=== PATIENT | female | born 1975 | race African-American/Black ===

== ENCOUNTER 2016-10-20 22:44 | Emergency (ER) | payer SELFPAY ==
[~2016-10-20] VITALS: Ht 165.1 cm; Wt 73.0 kg
[~2016-10-20 22:44] MED LIST: CYCL10TA2 PO; TRAM50TA PO
[2016-10-20 23:03] VITALS: BP 104/58
[2016-10-20 23:03] LABS: BILIRUBIN,URINE NEGATIVE (NEG); GLUCOSE,URINE NEGATIVE (NEG); NITRITE,URINE POSITIVE (NEG); PROTEIN,URINE 30 mg/dL (NEG-TRACE)
[2016-10-20 23:12] LABS: BACTERIA,URINE MANY /HPF (0-FEW); RBC,URINE TNTC /HPF (0-2); SQUAMOUS EPITHELIAL CELL,UR MOD /LPF; WBC,URINE TNTC /HPF (0-4)
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
[2016-10-20] MEDS ORDERED: KETOROLAC TROMETHAMINE 60 MG/2 ML SYRINGE. IM ONE (23:30)
[2016-10-20 23:49] LABS: CALCIUM 8.7 mg/dL (8.5-10.1); CREATININE 0.6 mg/dL (0.6-1.0); POTASSIUM 3.8 mmol/L (3.5-5.1)
--- NOTE | 2016-10-21 00:02 | RAD ---
PROCEDURE CT abdomen pelvis without contrast HISTORY Bilateral flank pain for [address] days TE[address]QUE Noncontrast helical CT scanning of the abdomen and pelvis was performed. Without GI contrast, the sensitivity to detect GI tract pathology is decreased. Without IV contrast, the sensitivity to detect organ pathology is decreased. FINDINGS The liver is homogeneous in appearance on this noncontrast study and is normal in size. The spleen is homogeneous appearance on this noncontrast study and is normal in size. The pancreas is homogeneous appearance on this noncontrast study and is not enlarged. The gallbladder appears normal and no radiopaque gallstones are seen. No extrahepatic biliary ductal dilatation is seen. No adrenal masses are seen. No renal stones or hydronephrosis or perinephric fluid collections are seen. No hydroureter is seen. No stones are evident within either ureter or within the lumen of the urinary bladder. The urinary bladder wall is smooth. No focal aneurysmal dilatation of the abdominal aorta is seen. No enlarged abdominal or pelvic lymphadenopathy is seen. No free intraperitoneal fluid or free intraperitoneal air is seen. No obstructive bowel pattern or inflammatory changes are seen. The lung bases are clear. No osteolytic process is seen. There is a bulky fibroid uterus measuring 17 centimeters by 11 centimeters by 8 centimeters. The ovaries are not well seen. There is formed stool scattered throughout the colon. IMPRESSION One. Large fibroid uterus. 2. Mild constipation. Electronically signed by: Jonnathan Stern MD (Oct 21, 2016 00:02:09)
[2016-10-21] MEDS ORDERED: HYDR-971 PO (00:24)
[2016-10-21] MEDS ORDERED: ONDA4TAB7 PO (00:24)
[2016-10-21] MEDS ORDERED: SULF1TAB24 PO (00:24)
--- NOTE | 2016-10-21 07:52 | RAD ---
EXAM: Right foot 3 views. HISTORY: Right foot pain. COMPARISON: None. FINDINGS: No fractures are identified. Joint spaces and alignment are maintained. There are moderate plantar and small posterior calcaneal spurs. IMPRESSION: 1. No fracture.
== END 2016-10-21 00:48 | disposition home or self-care (01) ==
LOC: ER 22:44
DX: N12 Tubulo-interstitial nephritis, not specified as acute or chronic (principal); M19.90 Unspecified osteoarthritis, unspecified site; Z88.0 Allergy status to penicillin
CPT/HCPCS: 36415; 73630; 74176; 80048; 81001; 81025; 87086; 96372; 99285; J1885

== ENCOUNTER 2016-10-23 06:43 | Inpatient (IN) | payer SELFPAY ==
[~2016-10-23] VITALS: Ht 165.1 cm; Wt 74.6 kg
[~2016-10-23 06:43] MED LIST changes: +HYDR-971 PO; +ONDA4TAB7 PO; +SULF1TAB24 PO
--- NOTE | 2016-10-23 07:26 | PHYS DOC ---
Past Medical History Past Medical History: Arthritis Past Surgical History: No Surgical History Additional Information: non-smoker Alcohol Use: None Drug Use: None Adult General Chief Complaint Chief Complaint: FLANK PAIN HPI HPI Patient is a 41 year old female who presents with dysuria for 6 days. She complains of urinary frequency with suprapubic pain and bilateral lower back pain as well. She denies fever, hematuria, or vaginal discharge. She was seen here 3 days ago with flank pain and diagnosed with pyelonephritis. She had a negative CT scan. She was prescribed Bactrim, Zofran, and [place]. She states that the Bactrim makes her nauseated and she vomits after each dose, even with the Zofran. She does not have a PCP. Review of Systems Review of Systems Constitutional: Denies fever or chills. [] Eyes: Denies change in visual acuity, redness, or eye pain. [] HENT: Denies ear pain, nasal congestion or sore throat. [] Respiratory: Denies cough or shortness of breath. [] Cardiovascular: Denies chest pain, palpitations or edema. [] GI: Denies bloody stools or diarrhea. Reports suprapubic pain, nausea, and vomiting. : Denies hematuria or vaginal discharge. Reports dysuria and urinary frequency. Musculoskeletal: Denies joint pain. Reports bilateral low back pain. Integument: Denies rash or skin lesions. [] Neurologic: Denies headache, focal weakness or sensory changes. [] Endocrine: Denies polyuria or polydipsia. [] Psych: Denies anxiety or depression. [] All systems reviewed and negative unless otherwise stated in the HPI. Current Medications Current Medications Current Medications Medications (Trade) Dose Ordered Sig/[facility] Start Time Stop Time Status Last Admin Dose Admin Ondansetron HCl (Zofran) 4 mg 1X ONCE 10/23/16 08:00 10/23/16 08:01 DC 10/23/16 08:09 4 MG Phenazopyridine HCl (Pyridium) 200 mg 1X ONCE 10/23/16 08:00 10/23/16 08:01 DC 10/23/16 08:09 200 MG Sodium Chloride (Iv Sodium Chloride 0.9% 1000ml Bag) 1,000 ml @ 1,000 mls/hr Q1H 10/23/16 08:00 10/23/16 08:59 DC 10/23/16 08:08 1,000 MLS/HR Allergies Allergies Allergies Coded Allergies Type Severity Reaction Last Updated Verified Penicillins Allergy Severe throat closes, hives 09/29/15 No Physical Exam Physical Exam Constitutional: Well developed, well nourished, no acute distress, non-toxic appearance. [] HENT: Normocephalic, atraumatic, oropharynx moist. [] Eyes: PERRLA, EOMI, conjunctiva normal, no discharge. [] Neck: Normal range of motion, no tenderness, supple, no stridor. [] Cardiovascular: Heart rate regular rhythm, no murmur. [] Lungs & Thorax: Bilateral breath sounds clear to auscultation without wheezes, rales, or rhonchi. [] Abdomen: Bowel sounds normal, soft, suprapubic tenderness, no masses, no pulsatile masses. [] Rectal: No tenderness with exam. No gross blood. Skin: Warm, dry, no erythema, no rash. [] Back: No midline tenderness, no CVA tenderness. Bilateral lumbar paraspinal muscle tenderness. Extremities: No tenderness, ROM intact, no edema. Distal pulses equal bilaterally. [] Neurologic: Alert and oriented X 3, normal motor function, normal sensory function, no focal deficits noted. [] Psychologic: Affect normal, judgement normal, mood normal. [] Current Patient Data Vital Signs Vital Signs Date Time Temp Pulse Resp B/P Pulse Ox O2 Delivery O2 Flow Rate FiO2 10/23/16 06:52 99.2 99 16 116/55 100 Room Air 99.2 Lab Values Laboratory Tests Test 10/23/16 07:30 10/23/16 07:50 Urine Collection Type Unknown Urine Color Yellow Urine Clarity Clear Urine pH 6.0 Urine Specific [place] 1.025 Urine Protein 100mg/dL (NEG-TRACE) Urine Glucose (UA) Negativemg/dL (NEG) Urine Ketones (Stick) Negativemg/dL (NEG) Urine Blood Large (NEG) Urine Nitrite Negative (NEG) Urine Bilirubin Negative (NEG) Urine Urobilinogen Dipstick 0.2mg/dL (0.2 mg/dL) Urine Leukocyte Esterase Moderate (NEG) Urine RBC 6-10/HPF (0-2) Urine WBC 5-10/HPF (0-4) Urine Squamous Epithelial Cells Few/LPF Urine Bacteria 0/HPF (0-FEW) White Blood Count 8.1x10^3/uL (4.0-11.0) Red Blood Count 5.04x10^6/uL (3.50-5.40) Hemoglobin 6.3g/dL (12.0-15.5) *L Hematocrit 24.5% (36.0-47.0) L Mean Corpuscular Volume 49fL (79-100) L Mean Corpuscular Hemoglobin 13pg (25-35) L Mean Corpuscular Hemoglobin Concent 26g/dL (31-37) L Red Cell Distribution Width 22.6% (11.5-14.5) H Platelet Count 320x10^3/uL (140-400) Neutrophils (%) (Auto) 51% (31-73) Lymphocytes (%) (Auto) 39% (24-48) Monocytes (%) (Auto) 8% (0-9) Eosinophils (%) (Auto) 1% (0-3) Basophils (%) (Auto) 1% (0-3) Neutrophils # (Auto) 4.2x10^3uL (1.8-7.7) Lymphocytes # (Auto) 3.2x10^3/uL (1.0-4.8) Monocytes # (Auto) 0.7x10^3/uL (0.0-1.1) Eosinophils # (Auto) 0.1x10^3/uL (0.0-0.7) Basophils # (Auto) 0.1x10^3/uL (0.0-0.2) Platelet Estimate Pending Sodium Level 136mmol/L (136-145) Potassium Level 3.6mmol/L (3.5-5.1) Chloride Level 101mmol/L (98-107) Carbon Dioxide Level 24mmol/L (21-32) Anion Gap 11 (6-14) Blood Urea Nitrogen 18mg/dL (7-20) Creatinine 0.6mg/dL (0.6-1.0) Estimated GFR (Cockcroft-Gault) 132.0 BUN/Creatinine Ratio 30 (6-20) H Glucose Level 103mg/dL (70-99) H Calcium Level 8.7mg/dL (8.5-10.1) Total Bilirubin 0.8mg/dL (0.2-1.0) Aspartate Amino Transferase (AST) 11U/L (15-37) L Alanine Aminotransferase (ALT) 13U/L (14-59) L Alkaline Phosphatase 63U/L (46-116) Total Protein 8.6g/dL (6.4-8.2) H Albumin 3.9g/dL (3.4-5.0) Albumin/Globulin Ratio 0.8 (1.0-1.7) L Laboratory Tests 10/23/16 07:50 Laboratory Tests 10/23/16 07:50 EKG EKG [] Radiology/Procedures Radiology/Procedures [] Course & Med Decision Making Course & Med Decision Making Pertinent Labs and Imaging studies reviewed. (See chart for details) The patient presents with continued urinary symptoms after antibiotic treatment for recently diagnosed UTI. On exam, her abdomen is soft and nonsurgical with suprapubic tenderness. Laboratory evaluation reveals significant anemia with Hgb of 6.2. Review of previous labs shows history of anemia, but never this severe. The patient admits to dyspnea on light exertion. She has heavy menstrual cycles but denies hematochezia or melena. She is admitted as observation to the hospitalist service by Dr. Hinojosa for blood transfusion and continued treatment of her UTI. She remained stable in the emergency department. Dragon Disclaimer Dragon Disclaimer This electronic medical record was generated, in whole or in part, using a voice recognition dictation system. Departure Departure Impression: Primary Impression: Anemia Additional Impression: UTI (urinary tract infection) Disposition: ADMITTED INPATIENT Admitting Physician: Leonela Hinojosa Condition: STABLE Referrals: NO PCP (PCP) Problem Qualifiers Primary Impression: Anemia Anemia type: unspecified type Qualified Code: D64.9 - Anemia, unspecified Additional Impression: UTI (urinary tract infection) Urinary tract infection type: acute cystitis Hematuria presence: without hematuria Qualified Code: N30.00 - Acute cystitis without hematuria DOLORES CRAIG Oct 23, 2016 07:26
[2016-10-23] MEDS ORDERED: ONDANSETRON PF 4 MG/2 ML VIAL. IV ONE (08:00)
[2016-10-23] MEDS ORDERED: IV NORMAL SALINE 1000ML BAG 1,000 ML IV SCH (08:00)
[2016-10-23] MEDS ORDERED: PHENAZOPYRIDINE 200 MG TABLET. PO ONE (08:00)
[2016-10-23 08:07] LABS: BILIRUBIN,URINE NEGATIVE (NEG); GLUCOSE,URINE NEGATIVE (NEG); NITRITE,URINE NEGATIVE (NEG); PROTEIN,URINE 100 mg/dL (NEG-TRACE); UROBILINOGEN,URINE 0.2 mg/dL (0.2 mg/dL)
[2016-10-23 08:12] LABS: BASO # 0.1 x10^3/uL (0.0-0.2); BASO % 1 % (0-3); CALCIUM 8.7 mg/dL (8.5-10.1); CREATININE 0.6 mg/dL (0.6-1.0); EOS % 1 % (0-3); HEMATOCRIT 24.5 % (36.0-47.0); LYMPH # 3.2 x10^3/uL (1.0-4.8); LYMPH % 39 % (24-48); MEAN CORPUSCULAR HEMOGLOBIN 13 pg (25-35); MEAN CORPUSCULAR HGB CONC 26 g/dL (31-37); MEAN CORPUSCULAR VOLUME 49 fL (79-100); MONO % 8 % (0-9); NEUT % 51 % (31-73); PLATELET COUNT 320 x10^3/uL (140-400); POTASSIUM 3.6 mmol/L (3.5-5.1); RED BLOOD COUNT 5.04 x10^6/uL (3.50-5.40); RED CELL DISTRIBUTION WIDTH 22.6 % (11.5-14.5); WHITE BLOOD COUNT 8.1 x10^3/uL (4.0-11.0)
[2016-10-23 08:16] LABS: HEMOGLOBIN 6.3 g/dL (12.0-15.5)
[2016-10-23 08:17] LABS: ALBUMIN 3.9 g/dL (3.4-5.0); ALBUMIN/GLOBULIN RATIO 0.8 (1.0-1.7); TOTAL BILIRUBIN 0.8 mg/dL (0.2-1.0); TOTAL PROTEIN 8.6 g/dL (6.4-8.2)
[2016-10-23 08:28] LABS: BACTERIA,URINE 0 /HPF (0-FEW); SQUAMOUS EPITHELIAL CELL,UR FEW /LPF
--- NOTE | 2016-10-23 09:15 | ACF ---
Admission Forms Criteria ANEMIA Clinical Indications for Inpatient Care (Place 'X' for any and all applicable criteria) Ongoing inpatient care may be needed for anemia with 1 or more of the following (1)(2)(3)(4)(18)(37): [X]I. Severe signs or symptoms unresponsive to transfusion or volume replacement, including ANY ONE of the following: []a) Heart failure []b) Chest pain []c) Myocardial ischemia []d) Exertional dyspnea []e) Syncope []f) Acute peripheral ischemia (eg, pulseless, cool, mottled, or cyanotic extremity) [X]g) Other severe signs or symptoms []II. Cognitive impairment []III. Active hemorrhage []IV.Active hemolysis with rapidly progressive anemia []V. Hemodynamic instability Extended stay beyond goal length of stay for the primary condition may be needed until ALL of the following are present (1)(2)(3)(4): []a) Hemodynamic stability []b) Any active blood loss controlled []c) Severe signs or symptoms resolved []d) Mental status normal or at baseline []e) Stable hemoglobin after transfusion []f) Any underlying disorder or complications of treatment controlled The original [employer] content created by [employer] has been revised. The portions of the content which have been revised are identified through the use of italic text or in bold, and [facility] has neither reviewed nor approved the modified material. All other unmodified content is copyright [employer]. Please see references footnoted in the original [facility] edition 2016 Admission Criteria Met?: Yes GEE FRANCES Oct 23, 2016 09:15
[2016-10-23 09:56] LABS: NEG OBC FOB NEG; POS OBC FOB POS
[2016-10-23 11:03] LABS: ANISOCYTOSIS MOD; HYPOCHROMIA MARKED; MICROCYTOSIS MARKED; PLT ESTIMATE ADEQUATE (ADEQUATE); POIKILOCYTOSIS PRESENT
[2016-10-23 11:04] LABS: OVALOCYTES PRESENT; SCHISTOCYTES OCC
[2016-10-23] MEDS ORDERED: ONDANSETRON ODT 4 MG TAB.RAPDIS PO PRN (11:15)
[2016-10-23] MEDS ORDERED: TRAMADOL 50 MG TABLET. PO PRN (11:15)
[2016-10-23] MEDS ORDERED: CYCLOBENZAPRINE 10 MG TABLET. PO PRN (11:15)
[2016-10-23] MEDS ORDERED: HYDROCODONE/APAP 5/325MG TABLET. PO PRN (11:15)
[2016-10-23 12:05] LABS: NEG OBC UR NEG; POS OBC UR POS
[2016-10-23] MEDS: SMZ/TMP 800/160MG TABLET. PO SCH ×2 (12:49→21:00)
[2016-10-23 13:40] VITALS: BP 92/45
[2016-10-23 13:50] VITALS: BP 94/40
--- NOTE | 2016-10-23 13:59 | RAD ---
Pelvic ultrasound, 10/23/2016: History: Menorrhagia Transabdominal scans were obtained. The uterus is enlarged measuring 16.3 x 11.8 x 8.1 cm. It demonstrates heterogeneous internal echogenicity in a multinodular pattern most compatible with a fibroid uterus. The masses are difficult to separate from each other. The largest of these masses measures approximately 7 cm. The central uterine echo complex is not clearly visualized. The uterus has increased in size since the exam of 12/12/2014. Small structures which are probably the ovaries are visualized and they are normal size. No free fluid is evident in the pelvis. IMPRESSION: Enlarged, heterogeneous uterus containing multiple masses compatible with fibroids. The uterus has increased in size since 12/12/2014.
[2016-10-23] MEDS: ACETAMINOPHEN 325 MG TABLET. PO PRN (14:05)
--- NOTE | 2016-10-23 14:05 | HP ---
ADMIT DATE: 10/23/2016 CHIEF COMPLAINT: Flank pain. HISTORY OF PRESENT ILLNESS: The patient is a pleasant 41-year-old -[place] female who has been treated for UTI. She states she has not really tolerated the medicine. She also has some flank pain. While in the ER, we checked her labs, she also has hemoglobin of 6.2. I discussed the case with the ER physician. We are going to admit the patient, give her IV antibiotics and transfuse her and consult Dr. Pollock of the [facility] service. PAST MEDICAL HISTORY: Chronic anemia, heavy periods, arthritis, urinary tract infections. ALLERGIES: PENICILLIN. FAMILY HISTORY: Coronary disease. SOCIAL HISTORY: She works at [employer]. She does not drink, smoke or take drugs. MEDICATIONS: Reviewed, please refer to the MRAD. REVIEW OF SYSTEMS: GENERAL: No history of weight change, weakness or fevers. SKIN: No bruising, hair changes or rashes. EYES: No blurred, double or loss of vision. NOSE AND THROAT: No history of nosebleeds, hoarseness or sore throat. HEART: No history of palpitations, chest pain or shortness of breath on exertion. LUNGS: Denies cough, hemoptysis, wheezing or shortness of breath. GASTROINTESTINAL: The patient complains of some abdominal pain. GENITOURINARY: No history of frequency, urgency, hesitancy or nocturia. NEUROLOGIC: Denies history of numbness, tingling, tremor or weakness. PSYCHIATRIC: No history of panic, anxiety or depression. ENDOCRINE: No history of heat or cold intolerance, polyuria or polydipsia. EXTREMITIES: Denies muscle weakness, joint pain, pain on walking or stiffness. PHYSICAL EXAMINATION: VITAL SIGNS: Temperature afebrile at 99.2, pulse 99, respirations 18, blood pressure ____, O2 sat 100% on room air. GENERAL: She is alert, cooperative. HEART: Normal S1, S2. LUNGS: Clear to auscultation. ABDOMEN: Soft. Decreased bowel sounds, slightly tender. EXTREMITIES: No edema. SKIN: No rashes. PSYCHIATRIC: She is stable. VASCULAR: Good capillary refill. ENDOCRINE: No thyromegaly. LYMPHATICS: No cervical nodes. HEMATOPOIETIC: No bruising. LABORATORY DATA: White count 8, hemoglobin ____, platelets 320. Electrolytes normal. Glucose is 103. Liver function tests basically normal. Albumin 3.9. Urinalysis, large amount of blood, moderate leukocyte esterases, 5-10 white cells. Stool occult blood testing was negative. ASSESSMENT AND PLAN: Acute on chronic anemia secondary to menometrorrhagia and urinary tract infection. We will treat with IV antibiotics. Consult [facility]. Transfuse 2 units packed red blood cells, resume previous home medicines. TWYLA NEUMANN DO DR: ROSALIO/nicanor JOB#: [id number] / [id number]
[2016-10-23 15:00] VITALS: BP 108/43
[2016-10-23 19:15] VITALS: BP 91/44
[2016-10-23 20:19] VITALS: BP 91/44
[2016-10-23] MEDS ORDERED: PHENAZOPYRIDINE 200 MG TABLET. PO PRN (23:00)
[2016-10-23 23:21] VITALS: BP 83/38
[2016-10-24] VITALS (8 sets, daily range): BP systolic 51–110; BP diastolic 38–60
[2016-10-24] MEDS ORDERED: LEVOFLOXACIN 500 MG TABLET PO SCH (06:00)
[2016-10-24 11:31] LABS: HEMATOCRIT 27.7 % (36.0-47.0); HEMOGLOBIN 7.4 g/dL (12.0-15.5)
--- NOTE | 2016-10-24 11:32 | PDOC ---
PROGRESS NOTES Chief Complaint Chief Complaint Dysuria Anemia ASSESSMENT AND PLAN: 1. UTI: E.coli, pt not tolerant of O/P Abx. sensitive to levaquin 2. Anemia of chronic bleed (menorrhagia): [employer] consulted 2. Iron deficiency: 2/2 chronic bleed: check iron studies. plan in IV iron. 4. Hx B12 deficiency: check B12 level. may need repletion. in this setting, MCV of 49 is extremely low. ?inherited anemia as well, e.g. thalassemia. obtain Hbg electrophoresis Vitals Vitals Vital Signs Date Time Temp Pulse Resp B/P Pulse Ox O2 Delivery O2 Flow Rate FiO2 10/24/16 10:52 97.9 72 17 110/53 100 Room Air 97.9 Physical Exam Lungs: Clear Review of Systems Review of Systems feels a bit better. no SOB or dizziness FOREST OROURKE MD Oct 24, 2016 11:32
--- NOTE | 2016-10-24 12:49 | PDOC2 ---
CONSULT Date of Consult Date of Consult DATE: 10/24/16 TIME: 12:43 Reason for Consult Reason for Consult: h/o heavy bleeding Referring Physician Referring Physician: Dr. Hinojosa Identification/Chief Complaint Chief Complaint UTI and abd pain Source Source: Chart review, Patient History of Present Illness Reason for Visit: 41 y/o presented to ED with difficulty swallowing treatment for UTI and abd pain. She also reports heavy menses for > 20years that lasts up to 8 days. Menses is every 30 days. LMP was 10/06/16. She has h/o fibroids. Past Medical History Cardiovascular: No pertinent hx Pulmonary: No pertinent hx GI: No pertinent hx Heme/Onc: No pertinent hx Hepatobiliary: No pertinent hx Psych: No pertinent hx Rheumatologic: No pertinent hx Infectious disease: No pertinent hx Renal/: No pertinent hx Endocrine: No pertinent hx Past Surgical History Past Surgical History: No pertinent history Family History Family History: Cancer Social History ALCOHOL: none Drugs: None Lives: with Family Current Problem List Problem List Problems Medical Problems: (1) Anemia Status: Acute (2) UTI (urinary tract infection) Status: Acute Current Medications Current Medications Current Medications Sodium Chloride (Iv Sodium Chloride 0.9% 1000ml Bag) 1,000 ml @ 1,000 mls/hr Q1H IV Last administered on 10/23/16 08:08; Start 10/23/16 at 08:00; Stop at 08:59; Status DC Phenazopyridine HCl (Pyridium) 200 mg 1X ONCE PO Last administered on 08:09; Start 10/23/16 at 08:00; Stop 10/23/16 at 08:01; Status DC Ondansetron HCl 4 mg 4 mg 1X ONCE IV Last administered on 10/23/16 08:09; Start 10/23/16 at 08:00; Stop 10/23/16 at 08:01; Status DC Levofloxacin/ Dextrose (LEVAQUIN 750mg PREMIX) 150 ml @ 100 mls/hr 1X ONCE IV Last administered on 10/23/16 11:04; Start 10/23/16 at 10:00; Stop 10/23/16 at 11:29; Status DC Cyclobenzaprine HCl (Flexeril) 10 mg PRN QHS PRN PO MUSCLE PAIN; Start at 11:15 Acetaminophen/ Hydrocodone Bitart (Lortab 5/325) 1 tab PRN Q6HRS PRN PO PAIN; Start 10/23/16 at 11:15 Trimethoprim/ Sulfamethoxazole (Bactrim Ds) 1 tab BID PO ; Start 10/23/16 at 12: 00; Stop 10/23/16 at 22:38; Status DC Tramadol HCl (Ultram) 50 mg PRN Q6HRS PRN PO PAIN Last administered on 10:18; Start 10/23/16 at 11:15 Ondansetron HCl (Zofran Odt) 4 mg PRN BID PRN PO NAUSEA/VOMITING; Start at 11:15 Acetaminophen (Tylenol) 325 mg PRN Q6HRS PRN PO MILD PAIN / TEMP Last administered on 10/23/16 14:05; Start 10/23/16 at 13:45 Levofloxacin (Levaquin) 500 mg DAILY06 PO Last administered on 10/24/16 05:24 ; Start 10/24/16 at 06:00 Phenazopyridine HCl (Pyridium) 200 mg PRN Q6HRS PRN PO URINARY PAIN Last administered on 10/24/16 10:10; Start 10/23/16 at 23:00 Active Scripts Active Bactrim Ds Tablet (Sulfamethoxazole/Trimethoprim) 1 Each Tablet 1 Each PO BID Zofran (Ondansetron Hcl) 4 Mg Tablet 4 Mg PO BID PRN [place] 5-325 Tablet (Acetaminophen/Hydrocodone Bitart) 1 Each Tablet 1 Tab PO PRN Q6HRS PRN Cyclobenzaprine Hcl 10 Mg Tablet 1 Tab PO QHS PRN Tramadol Hcl 50 Mg Tablet 50 Mg PO Q6H PRN Allergies Allergies: Coded Allergies: Penicillins (Unverified Allergy, Severe, throat closes, hives, 09/29/15) ROS General: YES: Fatigue, No: Appetite, Chills, Malaise, Night Sweats, Other PSYCHOLOGICAL ROS: No: Anxiety, Behavioral Disorder, Concentration difficultie , Decreased libido, Depression, Disorientation, Hallucinations, Hostility, Irritablity, Memory difficulties, Mood Swings, Obsessive thoughts, Other, Physical abuse, Sexual abuse, Sleep disturbances, Suicidal ideation Eyes: No Blurry vision, No Decreased vision, No Double vision, No Dry eyes, No Excessive tearing, No Eye Pain, No Itchy Eyes, No Loss of vision, No Other, No Photophobia, No Scotomata, No Uses contacts, No Uses glasses HEENT: No: Epistaxis, Heacaches, Hearing change, Nasal congestion, Nasal discharge, Oral lesions, Other, Sinus pain, Sneezing, Snoring, Sore Throat, Tinnitus, Vertigo, Visual Changes, Vocal changes ALLERGY AND IMMUNOLOGY: No: Hives, Insect Bite Sensitivity, Itchy/Watery Eyes, Nasal Congestion, Other, Post Nasal Drip, Seasonal Allergies Hematological and Lymphatic: YES: Bleeding Problems, No: Blood Clots, Blood Transfusions, Brusing, Night Sweats, Other, Pallor, Swollen Lymph Nodes ENDOCRINE: No: Breast Changes, Galactorrhea, Hair Pattern Changes, Hot Flashes , Malaise/lethargy, Mood Swings, Other, Palpitations, Polydipsia/polyuria, Skin Changes, Temperature Intolerance, Unexpected Weight Changes Breast: No New/Changing Breast Lumps, No Nipple changes, No Nipple discharge, No Other Respiratory: No: Cough, Hemoptysis, Orthopnea, Other, Pleuritic Pain, SOB with excertion, Shortness of breath, Sputum Changes, Stridor, Tachypnea, Wheezing Cardiovascular: No Chest Pain, No Edema, No Lt Headedness, No Orthopnea, No Other, No Palpitations, No Paroxysmal Noc. Dyspnea Gastrointestinal: Yes Abdominal Pain, No Constipation, No Diarrhea, No Hematochezia, No Melena, No Nausea, No Other , No Vomiting Genitourinary: No , No , No , No , No , No , No , No Discharge, No Dysuria, No Flank Pain, No Frequency, No Hematuria, No Incontinence, No Other, No Pain, No Retention, No Urgency Neurological: No Behavorial Changes, No Bowel/Bladder ControlChng, No Confusion , No Dizziness, No Gait Disturbance, No Headaches, No Impaired Coord/balance, No Memory Loss, No Numbness/Tingling, No Other, No Seizures, No Speech Problems , No Tremors, No Visual Changes, No Weakness Skin: No Acne, No Dry Skin, No Eczema, No Hair Changes, No Lumps, No Mole Changes, No Mottling, No Nail Changes, No Other, No Pruritus, No Rash, No Skin Lesion Changes Physical Exam General: Alert, Oriented X3, Cooperative HEENT: Atraumatic Lungs: Clear to auscultation Heart: Regular rate Abdomen: Normal bowel sounds, Soft, Other (Enlarged uterus 20 wk size with moderate tenderness. Multiple fibroids palpated.) Extremities: No edema, Normal pulses Neuro: Normal gait, Strength at 5/5 X4 ext Psych/Mental Status: Mental status NL Vitals VITALS Vital Signs Date Time Temp Pulse Resp B/P Pulse Ox O2 Delivery O2 Flow Rate FiO2 10/24/16 10:52 97.9 72 17 110/53 100 Room Air 97.9 Labs Labs Laboratory Tests Test 10/23/16 07:30 10/23/16 07:50 10/23/16 09:30 10/24/16 11:12 Urine Collection Type Unknown Urine Color Yellow Urine Clarity Clear Urine pH 6.0 Urine Specific [place] 1.025 Urine Protein 100mg/dL (NEG-TRACE) Urine Glucose (UA) Negativemg/dL (NEG) Urine Ketones (Stick) Negativemg/dL (NEG) Urine Blood Large (NEG) Urine Nitrite Negative (NEG) Urine Bilirubin Negative (NEG) Urine Urobilinogen Dipstick 0.2mg/dL (0.2 mg/dL) Urine Leukocyte Esterase Moderate (NEG) Urine RBC 6-10/HPF (0-2) Urine WBC 5-10/HPF (0-4) Urine Squamous Epithelial Cells Few/LPF Urine Bacteria 0/HPF (0-FEW) Urine Test Negative (NEG) White Blood Count 8.1x10^3/uL (4.0-11.0) Red Blood Count 5.04x10^6/uL (3.50-5.40) Hemoglobin 6.3g/dL (12.0-15.5) 7.4g/dL (12.0-15.5) Hematocrit 24.5% (36.0-47.0) 27.7% (36.0-47.0) Mean Corpuscular Volume 49fL (79-100) Mean Corpuscular Hemoglobin 13pg (25-35) Mean Corpuscular Hemoglobin Concent 26g/dL (31-37) Red Cell Distribution Width 22.6% (11.5-14.5) Platelet Count 320x10^3/uL (140-400) Neutrophils (%) (Auto) 51% (31-73) Lymphocytes (%) (Auto) 39% (24-48) Monocytes (%) (Auto) 8% (0-9) Eosinophils (%) (Auto) 1% (0-3) Basophils (%) (Auto) 1% (0-3) Neutrophils # (Auto) 4.2x10^3uL (1.8-7.7) Lymphocytes # (Auto) 3.2x10^3/uL (1.0-4.8) Monocytes # (Auto) 0.7x10^3/uL (0.0-1.1) Eosinophils # (Auto) 0.1x10^3/uL (0.0-0.7) Basophils # (Auto) 0.1x10^3/uL (0.0-0.2) Platelet Estimate Adequate (ADEQUATE) Giant Platelets Present Hypochromasia Marked Poikilocytosis Present Anisocytosis Mod Microcytosis Marked Ovalocytes Present Schistocytes Occ Sodium Level 136mmol/L (136-145) Potassium Level 3.6mmol/L (3.5-5.1) Chloride Level 101mmol/L (98-107) Carbon Dioxide Level 24mmol/L (21-32) Anion Gap 11 (6-14) Blood Urea Nitrogen 18mg/dL (7-20) Creatinine 0.6mg/dL (0.6-1.0) Estimated GFR (Cockcroft-Gault) 132.0 BUN/Creatinine Ratio 30 (6-20) Glucose Level 103mg/dL (70-99) Calcium Level 8.7mg/dL (8.5-10.1) Total Bilirubin 0.8mg/dL (0.2-1.0) Aspartate Amino Transf (AST/SGOT) 11U/L (15-37) Alanine Aminotransferase (ALT/SGPT) 13U/L (14-59) Alkaline Phosphatase 63U/L (46-116) Total Protein 8.6g/dL (6.4-8.2) Albumin 3.9g/dL (3.4-5.0) Albumin/Globulin Ratio 0.8 (1.0-1.7) Stool Occult Blood Negative (NEG) Ferritin 3ng/mL (8-252) Laboratory Tests Test 10/24/16 11:12 Hemoglobin 7.4g/dL (12.0-15.5) Hematocrit 27.7% (36.0-47.0) Ferritin 3ng/mL (8-252) Assessment/Plan Assessment/Plan A: UTI Fibroids Menorrhagia Chronic Blood loss anemia P: Agree with plan for transfusion. Pt. with enlarging fibroid uterus. She has family h/o breast cancer. Recommend LAVH & BSO. She will f/u in clinic in next 1-2 weeks for evaluation and scheduling of surgery. Thank you for consult. MEKHI LIM Jr, MD Oct 24, 2016 12:49
[2016-10-24] MEDS ORDERED: IRON SUCROSE COMPLEX 300 MG in IV NORMAL SALINE 250ML 250 ML IV SCH (21:00)
[2016-10-24] MEDS ORDERED: LEVOFLOXACIN 250 MG TABLET. PO SCH (21:00)
[2016-10-25] VITALS (10 sets, daily range): BP systolic 92–140; BP diastolic 48–68
[2016-10-25 05:27] LABS: BASO # 0.1 x10^3/uL (0.0-0.2); BASO % 1 % (0-3); EOS % 2 % (0-3); HEMATOCRIT 25.1 % (36.0-47.0); LYMPH # 2.5 x10^3/uL (1.0-4.8); LYMPH % 38 % (24-48); MEAN CORPUSCULAR HEMOGLOBIN 14 pg (25-35); MEAN CORPUSCULAR HGB CONC 28 g/dL (31-37); MEAN CORPUSCULAR VOLUME 51 fL (79-100); MONO % 13 % (0-9); NEUT % 47 % (31-73); PLATELET COUNT 255 x10^3/uL (140-400); RED BLOOD COUNT 4.94 x10^6/uL (3.50-5.40); RED CELL DISTRIBUTION WIDTH 23.1 % (11.5-14.5); WHITE BLOOD COUNT 6.7 x10^3/uL (4.0-11.0)
[2016-10-25] MEDS ORDERED: LEVOFLOXACIN 250 MG TABLET. PO SCH (06:00)
[2016-10-25] MEDS ORDERED: IRON SUCROSE COMPLEX 300 MG in IV NORMAL SALINE 250ML 250 ML IV SCH (09:00)
[2016-10-25] MEDS ORDERED: FERR-26 PO (09:14)
[2016-10-25 10:27] LABS: % SAT IRON 68 % (15-34); IRON,SERUM 297 ug/dL (50-170)
--- NOTE | 2016-10-25 13:14 | PDOC ---
PROGRESS NOTES Chief Complaint Chief Complaint ANA Acute blood loss anemia sec to menorrhagia Fibroid Uterus UTI, sensitive to levaquin History of Present Illness History of Present Illness hgb 6 plus, getting IV venofer Feels ok Iron studies reviewed, supports ANA NOt having her periods today PLAn: OP gyne ff up for hysterrectomy TRansfuse 1 prbc today LAst IV venofer today, no more to follow PO ferrous sulfate upon dc HH yolanda If stable yolanda then home yolanda dw pt Vitals Vitals Vital Signs Date Time Temp Pulse Resp B/P Pulse Ox O2 Delivery O2 Flow Rate FiO2 10/25/16 10:36 97.9 86 18 111/68 98 Room Air 97.9 Physical Exam General: Alert, Oriented X3, Cooperative Heart: Regular rate Lungs: Clear Abdomen: Normal bowel sounds, Soft, Other (Enlarged uterus 20 wk size with moderate tenderness. Multiple fibroids palpated.) Extremities: No edema, Normal pulses Labs LABS Laboratory Tests Test 10/25/16 04:30 White Blood Count 6.7x10^3/uL (4.0-11.0) Red Blood Count 4.94x10^6/uL (3.50-5.40) Hemoglobin 7.0g/dL (12.0-15.5) Hematocrit 25.1% (36.0-47.0) Mean Corpuscular Volume 51fL (79-100) Mean Corpuscular Hemoglobin 14pg (25-35) Mean Corpuscular Hemoglobin Concent 28g/dL (31-37) Red Cell Distribution Width 23.1% (11.5-14.5) Platelet Count 255x10^3/uL (140-400) Neutrophils (%) (Auto) 47% (31-73) Lymphocytes (%) (Auto) 38% (24-48) Monocytes (%) (Auto) 13% (0-9) Eosinophils (%) (Auto) 2% (0-3) Basophils (%) (Auto) 1% (0-3) Neutrophils # (Auto) 3.1x10^3uL (1.8-7.7) Lymphocytes # (Auto) 2.5x10^3/uL (1.0-4.8) Monocytes # (Auto) 0.9x10^3/uL (0.0-1.1) Eosinophils # (Auto) 0.1x10^3/uL (0.0-0.7) Basophils # (Auto) 0.1x10^3/uL (0.0-0.2) Assessment and Plan Assessmemt and Plan Problems Medical Problems: (1) Anemia Status: Acute (2) Anemia due to unknown mechanism Status: Acute (3) Fibroid, uterine Status: Acute (4) UTI (urinary tract infection) Status: Acute Problems: Comment Review of Relevant I have reviewed the following items pauline (where applicable) has been applied. Labs Laboratory Tests Test 10/24/16 04:30 10/24/16 11:12 10/25/16 04:30 Iron Level 297ug/dL (50-170) Total Iron Binding Capacity 436ug/dL (250-450) Iron Saturation 68% (15-34) Serum Folate 6.48ng/ml (3.2-20.0) Hemoglobin 7.4g/dL (12.0-15.5) 7.0g/dL (12.0-15.5) Hematocrit 27.7% (36.0-47.0) 25.1% (36.0-47.0) Ferritin 3ng/mL (8-252) White Blood Count 6.7x10^3/uL (4.0-11.0) Red Blood Count 4.94x10^6/uL (3.50-5.40) Mean Corpuscular Volume 51fL (79-100) Mean Corpuscular Hemoglobin 14pg (25-35) Mean Corpuscular Hemoglobin Concent 28g/dL (31-37) Red Cell Distribution Width 23.1% (11.5-14.5) Platelet Count 255x10^3/uL (140-400) Neutrophils (%) (Auto) 47% (31-73) Lymphocytes (%) (Auto) 38% (24-48) Monocytes (%) (Auto) 13% (0-9) Eosinophils (%) (Auto) 2% (0-3) Basophils (%) (Auto) 1% (0-3) Neutrophils # (Auto) 3.1x10^3uL (1.8-7.7) Lymphocytes # (Auto) 2.5x10^3/uL (1.0-4.8) Monocytes # (Auto) 0.9x10^3/uL (0.0-1.1) Eosinophils # (Auto) 0.1x10^3/uL (0.0-0.7) Basophils # (Auto) 0.1x10^3/uL (0.0-0.2) Laboratory Tests Test 10/25/16 04:30 White Blood Count 6.7x10^3/uL (4.0-11.0) Red Blood Count 4.94x10^6/uL (3.50-5.40) Hemoglobin 7.0g/dL (12.0-15.5) Hematocrit 25.1% (36.0-47.0) Mean Corpuscular Volume 51fL (79-100) Mean Corpuscular Hemoglobin 14pg (25-35) Mean Corpuscular Hemoglobin Concent 28g/dL (31-37) Red Cell Distribution Width 23.1% (11.5-14.5) Platelet Count 255x10^3/uL (140-400) Neutrophils (%) (Auto) 47% (31-73) Lymphocytes (%) (Auto) 38% (24-48) Monocytes (%) (Auto) 13% (0-9) Eosinophils (%) (Auto) 2% (0-3) Basophils (%) (Auto) 1% (0-3) Neutrophils # (Auto) 3.1x10^3uL (1.8-7.7) Lymphocytes # (Auto) 2.5x10^3/uL (1.0-4.8) Monocytes # (Auto) 0.9x10^3/uL (0.0-1.1) Eosinophils # (Auto) 0.1x10^3/uL (0.0-0.7) Basophils # (Auto) 0.1x10^3/uL (0.0-0.2) Microbiology 10/23/16 Urine Culture - Final, Complete 10/23/16 Urine Culture Result 1 (MILANA) - Final, Complete 10/23/16 Antimicrobic Susceptibility - Final, Complete Medications Current Medications Sodium Chloride (Iv Sodium Chloride 0.9% 1000ml Bag) 1,000 ml @ 1,000 mls/hr Q1H IV Last administered on 10/23/16t 08:08; Start 10/23/16 at 08:00; Stop at 08:59; Status DC Phenazopyridine HCl (Pyridium) 200 mg 1X ONCE PO Last administered on 08:09; Start 10/23/16 at 08:00; Stop 10/23/16 at 08:01; Status DC Ondansetron HCl 4 mg 4 mg 1X ONCE IV Last administered on 10/23/16 08:09; Start 10/23/16 at 08:00; Stop 10/23/16 at 08:01; Status DC Levofloxacin/ Dextrose (LEVAQUIN 750mg PREMIX) 150 ml @ 100 mls/hr 1X ONCE IV Last administered on 10/23/16 11:04; Start 10/23/16 at 10:00; Stop 10/23/16 at 11:29; Status DC Cyclobenzaprine HCl (Flexeril) 10 mg PRN QHS PRN PO MUSCLE PAIN; Start at 11:15 Acetaminophen/ Hydrocodone Bitart (Lortab 5/325) 1 tab PRN Q6HRS PRN PO PAIN; Start 10/23/16 at 11:15 Trimethoprim/ Sulfamethoxazole (Bactrim Ds) 1 tab BID PO ; Start 10/23/16 at 12: 00; Stop 10/23/16 at 22:38; Status DC Tramadol HCl (Ultram) 50 mg PRN Q6HRS PRN PO PAIN Last administered on 10:18; Start 10/23/16 at 11:15 Ondansetron HCl (Zofran Odt) 4 mg PRN BID PRN PO NAUSEA/VOMITING; Start at 11:15 Acetaminophen (Tylenol) 325 mg PRN Q6HRS PRN PO MILD PAIN / TEMP Last administered on 10/23/16 14:05; Start 10/23/16 at 13:45 Levofloxacin (Levaquin) 500 mg DAILY06 PO Last administered on 10/24/16 05:24 ; Start 10/24/16 at 06:00; Stop 10/24/16 at 14:34; Status DC Phenazopyridine HCl (Pyridium) 200 mg PRN Q6HRS PRN PO URINARY PAIN Last administered on 10/24/16 10:10; Start 10/23/16 at 23:00 Levofloxacin 250 mg 250 mg DAILY06 PO ; Start 10/25/16 at 06:00; Stop 10/25/16 at 06:00; Status DC Iron Sucrose/ Sodium Chloride (Venofer/Iv Sodium Chloride 0.9% 250ml) 265 ml @ 78.571 mls/ hr Q12HR IV Last administered on 10/24/16 21:19; Start 10/24/16 at 21:00; Stop 10/25/16 at 00:01; Status DC Levofloxacin 300 mg 300 mg BID66 PO ; Start 10/24/16 at 21:00; Stop 10/24/16 at 21:00; Status DC Levofloxacin/ Dextrose 50 ml @ 50 mls/hr Q24H IV Last administered on 20:19; Start 10/24/16 at 20:00 Iron Sucrose/ Sodium Chloride (Venofer/Iv Sodium Chloride 0.9% 250ml) 265 ml @ 90 mls/hr Q12H IV Last administered on 10/25/16 09:32; Start 10/25/16 at 09:00 ; Stop 10/25/16 at 23:00 Active Scripts Active Bactrim Ds Tablet (Sulfamethoxazole/Trimethoprim) 1 Each Tablet 1 Each PO BID Zofran (Ondansetron Hcl) 4 Mg Tablet 4 Mg PO BID PRN [place] 5-325 Tablet (Acetaminophen/Hydrocodone Bitart) 1 Each Tablet 1 Tab PO PRN Q6HRS PRN Cyclobenzaprine Hcl 10 Mg Tablet 1 Tab PO QHS PRN Tramadol Hcl 50 Mg Tablet 50 Mg PO Q6H PRN Vitals/I & O Vital Sign - Last 24 Hours 10/24/16 10/24/16 10/24/16 10/24/16 15:00 19:10 20:00 23:05 Temp 98.4 98.8 97.7 98.4 98.8 97.7 Pulse 67 77 73 Resp 17 20 18 B/P 96/43 99/49 102/60 Pulse Ox 99 100 O2 Delivery Room Air Room Air Room Air Room Air 10/24/16 10/25/16 10/25/16 10/25/16 23:05 03:25 07:30 10:36 Temp 99.7 98.1 97.9 99.7 98.1 97.9 Pulse 77 72 86 Resp 16 16 18 B/P 107/54 109/55 111/68 Pulse Ox 100 99 99 98 O2 Delivery Room Air Room Air Room Air Room Air Intake and Output 10/24/16 10/24/16 10/25/16 15:00 23:00 07:00 Intake Total 640 ml 300 ml Balance 640 ml 300 ml FERMIN INIGUEZ MD Oct 25, 2016 13:14
[2016-10-25] MEDS: ACETAMINOPHEN 325 MG TABLET. PO PRN (23:12)
[2016-10-26 03:00] VITALS: BP 98/50
[2016-10-26 06:57] LABS: BASO # 0.1 x10^3/uL (0.0-0.2); BASO % 1 % (0-3); EOS % 2 % (0-3); HEMATOCRIT 29.3 % (36.0-47.0); LYMPH # 2.8 x10^3/uL (1.0-4.8); LYMPH % 29 % (24-48); MEAN CORPUSCULAR HEMOGLOBIN 15 pg (25-35); MEAN CORPUSCULAR HGB CONC 27 g/dL (31-37); MEAN CORPUSCULAR VOLUME 56 fL (79-100); MONO % 9 % (0-9); NEUT % 59 % (31-73); PLATELET COUNT 268 x10^3/uL (140-400); RED BLOOD COUNT 5.24 x10^6/uL (3.50-5.40); RED CELL DISTRIBUTION WIDTH 34.1 % (11.5-14.5); WHITE BLOOD COUNT 9.5 x10^3/uL (4.0-11.0)
[2016-10-26 07:00] VITALS: BP 104/61
--- NOTE | 2016-10-26 10:36 | PDOC3 ---
Discharge Summary Visit Information Date of Admission: Oct 23, 2016 Date of Discharge: Oct 26, 2016 Admitting Diagnosis Comment: ANA Acute blood loss anemia sec to menorrhagia Fibroid Uterus UTI, sensitive to levaquin Final Diagnosis Problems Medical Problems: (1) Anemia Status: Acute (2) Anemia due to unknown mechanism Status: Acute (3) Fibroid, uterine Status: Acute (4) ANA (iron deficiency anemia) Status: Acute (5) UTI (urinary tract infection) Status: Acute Brief Hospital Course Allergies Allergies Coded Allergies Type Severity Reaction Last Updated Verified Penicillins Allergy Severe throat closes, hives 09/29/15 No Vital Signs Vital Signs Date Time Temp Pulse Resp B/P Pulse Ox O2 Delivery O2 Flow Rate FiO2 10/26/16 08:00 Room Air 10/26/16 07:00 98.0 70 18 104/61 98 98.0 Lab Results Laboratory Tests Test 10/24/16 11:12 10/25/16 04:30 10/26/16 05:55 Hemoglobin 7.4g/dL (12.0-15.5) 7.0g/dL (12.0-15.5) 8.0g/dL (12.0-15.5) Hematocrit 27.7% (36.0-47.0) 25.1% (36.0-47.0) 29.3% (36.0-47.0) Ferritin 3ng/mL (8-252) White Blood Count 6.7x10^3/uL (4.0-11.0) 9.5x10^3/uL (4.0-11.0) Red Blood Count 4.94x10^6/uL (3.50-5.40) 5.24x10^6/uL (3.50-5.40) Mean Corpuscular Volume 51fL (79-100) 56fL (79-100) Mean Corpuscular Hemoglobin 14pg (25-35) 15pg (25-35) Mean Corpuscular Hemoglobin Concent 28g/dL (31-37) 27g/dL (31-37) Red Cell Distribution Width 23.1% (11.5-14.5) 34.1% (11.5-14.5) Platelet Count 255x10^3/uL (140-400) 268x10^3/uL (140-400) Neutrophils (%) (Auto) 47% (31-73) 59% (31-73) Lymphocytes (%) (Auto) 38% (24-48) 29% (24-48) Monocytes (%) (Auto) 13% (0-9) 9% (0-9) Eosinophils (%) (Auto) 2% (0-3) 2% (0-3) Basophils (%) (Auto) 1% (0-3) 1% (0-3) Neutrophils # (Auto) 3.1x10^3uL (1.8-7.7) 5.6x10^3uL (1.8-7.7) Lymphocytes # (Auto) 2.5x10^3/uL (1.0-4.8) 2.8x10^3/uL (1.0-4.8) Monocytes # (Auto) 0.9x10^3/uL (0.0-1.1) 0.8x10^3/uL (0.0-1.1) Eosinophils # (Auto) 0.1x10^3/uL (0.0-0.7) 0.2x10^3/uL (0.0-0.7) Basophils # (Auto) 0.1x10^3/uL (0.0-0.2) 0.1x10^3/uL (0.0-0.2) Laboratory Tests Test 10/26/16 05:55 White Blood Count 9.5x10^3/uL (4.0-11.0) Red Blood Count 5.24x10^6/uL (3.50-5.40) Hemoglobin 8.0g/dL (12.0-15.5) Hematocrit 29.3% (36.0-47.0) Mean Corpuscular Volume 56fL (79-100) Mean Corpuscular Hemoglobin 15pg (25-35) Mean Corpuscular Hemoglobin Concent 27g/dL (31-37) Red Cell Distribution Width 34.1% (11.5-14.5) Platelet Count 268x10^3/uL (140-400) Neutrophils (%) (Auto) 59% (31-73) Lymphocytes (%) (Auto) 29% (24-48) Monocytes (%) (Auto) 9% (0-9) Eosinophils (%) (Auto) 2% (0-3) Basophils (%) (Auto) 1% (0-3) Neutrophils # (Auto) 5.6x10^3uL (1.8-7.7) Lymphocytes # (Auto) 2.8x10^3/uL (1.0-4.8) Monocytes # (Auto) 0.8x10^3/uL (0.0-1.1) Eosinophils # (Auto) 0.2x10^3/uL (0.0-0.7) Basophils # (Auto) 0.1x10^3/uL (0.0-0.2) Brief Hospital Course Ms. Hernandez is a 41 old AA male admitted for hGb 6, got BT, has menorrahgia, US shows fibroid uterus. Advised sx by OB gyne, Will ff up as OP to set up schedule. Got IV venofer here multiple doses (by colleague),. Being dcd on PO ferrous sulfate and dc instructions ff up gyne Incidental UTI,sensitive to levaquin Discharge Information Condition at Discharge: Improved, Stable Follow Up: Weeks (dr lesli fernández) Disposition/Orders: D/C to Home Scheduled Sulfamethoxazole/Trimethoprim (Bactrim Ds Tablet) 1 EACH PO BID Scheduled PRN Cyclobenzaprine Hcl (Cyclobenzaprine Hcl) 1 TAB PO QHS PRN PRN MUSCLE PAIN Hydrocodone/[place] 5-325 ([place] 5-325 Tablet) 1 TAB PO PRN Q6HRS PRN PRN PAIN Ondansetron Hcl (Zofran) 4 MG PO BID PRN PRN NAUSEA/VOMITING Tramadol Hcl (Tramadol Hcl) 50 MG PO Q6H PRN PRN PAIN FERMIN INIGUEZ MD Oct 26, 2016 10:36
[2016-10-26 10:54] VITALS: BP 107/58
[2016-10-26 15:26] LABS: HGB A 98.5 % (94.0-98.0); HGB A2 1.5 % (0.7-3.1); HGB ELECROPHORESIS COMMENT Note: (.)
[2016-10-29 07:32] LABS: VIT B12 BINDING 1263 pg/mL (725-2045)
== END 2016-10-26 13:30 | disposition home or self-care (01) | DRG 760 ==
LOC: ER 06:43 → 6 SOUTH 08:40
PROVIDERS: ADMIT Internal Medicine; ATTEND Internal Medicine
PROC: 30233N1 Transfusion of Nonautologous Red Blood Cells into Peripheral Vein, Percutaneous Approach (ICD-10-PCS; principal; 2016-10-23)
DX: N92.0 Excessive and frequent menstruation with regular cycle (principal); N39.0 Urinary tract infection, site not specified; D62 Acute posthemorrhagic anemia; D25.9 Leiomyoma of uterus, unspecified; B96.20 Unspecified Escherichia coli [E. coli] as the cause of diseases classified elsewhere; N92.1 Excessive and frequent menstruation with irregular cycle; R13.10 Dysphagia, unspecified; E53.8 Deficiency of other specified B group vitamins; M19.90 Unspecified osteoarthritis, unspecified site; M54.5 Low back pain; Z88.0 Allergy status to penicillin; Z80.3 Family history of malignant neoplasm of breast; D50.9 Iron deficiency anemia, unspecified
CPT/HCPCS: 36415; 76856; 80053; 81001; 81025; 82274; 82728; 82746; 83020; 83540; 83550; 85007; 85014; 85018; 85027; 86850; 86900; 86901; 86920; 87086; 87186; 96361; 96374; J1756; J1956; J2405; J7030; J7050; P9016; 99285-25

== ENCOUNTER 2016-10-27 23:47 | Inpatient (IN) | payer SELFPAY ==
[~2016-10-27] VITALS: Ht 165.1 cm; Wt 73.0 kg
[~2016-10-27 23:47] MED LIST changes: +FERR-26 PO
[2016-10-28 00:45] LABS: BASO # 0.1 x10^3/uL (0.0-0.2); BASO % 1 % (0-3); EOS % 1 % (0-3); HEMATOCRIT 33.2 % (36.0-47.0); HEMOGLOBIN 9.2 g/dL (12.0-15.5); LYMPH # 2.4 x10^3/uL (1.0-4.8); LYMPH % 21 % (24-48); MEAN CORPUSCULAR HEMOGLOBIN 16 pg (25-35); MEAN CORPUSCULAR HGB CONC 28 g/dL (31-37); MEAN CORPUSCULAR VOLUME 57 fL (79-100); MONO % 9 % (0-9); NEUT % 68 % (31-73); PLATELET COUNT 330 x10^3/uL (140-400); RED BLOOD COUNT 5.87 x10^6/uL (3.50-5.40); RED CELL DISTRIBUTION WIDTH 36.3 % (11.5-14.5); WHITE BLOOD COUNT 11.7 x10^3/uL (4.0-11.0)
[2016-10-28 00:53] LABS: CALCIUM 8.8 mg/dL (8.5-10.1); CREATININE 0.6 mg/dL (0.6-1.0); POTASSIUM 3.3 mmol/L (3.5-5.1)
[2016-10-28 00:59] LABS: ALBUMIN 3.7 g/dL (3.4-5.0); ALBUMIN/GLOBULIN RATIO 0.8 (1.0-1.7); TOTAL BILIRUBIN 1.4 mg/dL (0.2-1.0); TOTAL PROTEIN 8.4 g/dL (6.4-8.2)
[2016-10-28] MEDS ORDERED: VANCOMYCIN 1.75 GM in IV NORMAL SALINE 500ML BAG 500 ML IV ONE (01:00)
[2016-10-28 01:09] LABS: C-REACTIVE PROTEIN 70.5 mg/L (0-3.3)
[2016-10-28] MEDS: CLINDAMYCIN 600MG PREMIX 50 ML IV SCH ×4 (01:20→22:05)
--- NOTE | 2016-10-28 01:40 | RAD ---
PROCEDURE Right upper extremity venous Doppler HISTORY rue pain redness swelling x2 days following IV

clot seen in cephalic vn approx 8 cm above ac space to approx 2 cm below
remainder of veins are patent
reactive lymph node in neck TECHNIQUE AND FINDINGS Duplex ultrasound was used to evaluate the veins of the right upper extremity. Real-time imaging with compression, color flow imaging and spectral Doppler with augmentation were utilized for the study. The jugular vein is compressible and has flow with color imaging. Subclavian vein has flow with color imaging and normal phasic waveforms. The axillary and brachial veins are compressible and have flow with color imaging. Basilic vein is compressible and has flow with color imaging. A portion of the cephalic vein distally is enlarged with intraluminal thrombus consistent with venous thrombosis. Thrombosis is at the site of the previous IV. There is soft tissue swelling in the superficial soft tissues. The thrombus extends into the cephalic vein of the proximal forearm. COMPARISON None IMPRESSION 1. Venous thrombosis involving the cephalic vein. Electronically signed by: Ahsan Fernandes MD (Oct 28, 2016 01:39:09)
--- NOTE | 2016-10-28 02:26 | PHYS DOC ---
Past Medical History Past Medical History: Arthritis Past Surgical History: No Surgical History Alcohol Use: None Drug Use: None Adult General Chief Complaint Chief Complaint: UPPER EXTREMITY SWELLING HPI HPI Patient is a 41 year old female who presents here today complaining of pain to her right upper extremity. Patient was recently discharged from the hospital on Tuesday after admission for severe anemia requiring blood transfusion. Patient reports that she had an IV placed in her right antecubital fossa which initially hurt significantly and they had to change the IV placement and it was placed again in her right antecubital fossa. Patient reports that she arrived to the ER several days ago was diagnosed with a urinary tract infection. She reports that the urinary traction wasn't improving with the antibiotics were prescribed she return to the hospital to have the antibiotics changed during that visit the patient was noted to have severe anemia and was admitted to the hospital. The severe anemia was presumed to be secondary to iron deficiency likely secondary to metromenorrhagia. Patient was given 2 units of blood as well as IV iron through the IV and was discharged home Tuesday evening. Patient reports that when she was discharged to start have discomfort in her right antecubital region. Patient denies any fevers shakes chills nausea vomiting diarrhea chest pain shortness of breath cough cold or rhinorrhea. Patient denies any history of DVTs in the past. Patient denies any other past medical history. Patient denies any history of diabetes or heart failure. Patient denies any prior surgeries. Patient reports that she does have follow-up scheduled with one of the gynecologists for a evaluation for a hysterectomy. Patient's physical exam is significant for significant warmth or tenderness erythema and induration to her right antecubital fossa extending approximately 6 inches in both directions. There is no fluctuance is appreciated. She has no axillary lymphadenopathy. Patient is neurovascularly intact otherwise. Patient has good capillary refill. Patient had labs drawn which were all unremarkabl except for a significantly elevated C-reactive protein. Patient had a ultrasound of her right upper extremity which was significant for a venous thrombosis in the cephalic vein. This is a 41-year-old female with significant swelling to her right antecubital fossa erythema warmth and tenderness which is very concerning for possible cellulitis versus a deep vein thrombosis in that area. I am more clinically concerned about a cellulitis in this patient. Of greater concern is the patient has been on Levaquin for several days now to treat a urinary tract infection. At this is cellulitis this would be a cellulitis while already being treated with antibiotics. The cellulitis would be likely nosocomial he obtained from a IV catheter possibly. Given the significant risk factors I feel that the patient be best served by being admitted to the hospital. I have started broad- spectrum antibiotics including vancomycin and clindamycin in order to cover for MRSA. Review of Systems Review of Systems Constitutional: Denies fever or chills [] Eyes: Denies change in visual acuity, redness, or eye pain [] HENT: Denies nasal congestion or sore throat [] All other review systems are negative except as documented in the history of present illness portion. Current Medications Current Medications Current Medications Medications (Trade) Dose Ordered Sig/Shahid Start Time Stop Time Status Last Admin Dose Admin Clindamycin Phosphate 50 ml @ 100 mls/hr Q8HRS 10/28/16 01:00 10/28/16 01:20 100 MLS/HR Vancomycin HCl 1 each 1 each PRN DAILY PRN 10/28/16 00:30 Vancomycin HCl/ Sodium Chloride (Iv Sodium Chloride 0.9% 500ml Bag) 500 ml @ 250 mls/hr 1X ONCE 10/28/16 01:00 10/28/16 02:59 Allergies Allergies Allergies Coded Allergies Type Severity Reaction Last Updated Verified Penicillins Allergy Severe throat closes, hives 09/29/15 No Physical Exam Physical Exam Constitutional: Well developed, well nourished, no acute distress, non-toxic appearance. [] HENT: Normocephalic, atraumatic, bilateral external ears normal, oropharynx moist, no oral exudates, nose normal. [] Eyes: PERRLA, EOMI, conjunctiva normal, no discharge. [] Neck: Normal range of motion, no tenderness, supple, no stridor. [] Cardiovascular:Heart rate regular rhythm, no murmur [] Lungs & Thorax: Bilateral breath sounds clear to auscultation [] Abdomen: Bowel sounds normal, soft, no tenderness, no masses, no pulsatile masses. [] Skin: As above. Extremities: As above. Neurologic: Alert and oriented X 3, normal motor function, normal sensory function, no focal deficits noted. [] Psychologic: Affect normal, judgement normal, mood normal. [] Current Patient Data Vital Signs Vital Signs Date Time Temp Pulse Resp B/P Pulse Ox O2 Delivery O2 Flow Rate FiO2 10/28/16 01:30 80 127/78 99 Room Air 10/27/16 23:53 98.3 16 98.3 Lab Values Laboratory Tests Test 10/28/16 00:30 White Blood Count 11.7x10^3/uL (4.0-11.0) H Red Blood Count 5.87x10^6/uL (3.50-5.40) H Hemoglobin 9.2g/dL (12.0-15.5) L Hematocrit 33.2% (36.0-47.0) L Mean Corpuscular Volume 57fL (79-100) L Mean Corpuscular Hemoglobin 16pg (25-35) L Mean Corpuscular Hemoglobin Concent 28g/dL (31-37) L Red Cell Distribution Width 36.3% (11.5-14.5) H Platelet Count 330x10^3/uL (140-400) Neutrophils (%) (Auto) 68% (31-73) Lymphocytes (%) (Auto) 21% (24-48) L Monocytes (%) (Auto) 9% (0-9) Eosinophils (%) (Auto) 1% (0-3) Basophils (%) (Auto) 1% (0-3) Neutrophils # (Auto) 8.0x10^3uL (1.8-7.7) H Lymphocytes # (Auto) 2.4x10^3/uL (1.0-4.8) Monocytes # (Auto) 1.0x10^3/uL (0.0-1.1) Eosinophils # (Auto) 0.2x10^3/uL (0.0-0.7) Basophils # (Auto) 0.1x10^3/uL (0.0-0.2) Erythrocyte Sedimentation Rate 11 (0-25) Sodium Level 141mmol/L (136-145) Potassium Level 3.3mmol/L (3.5-5.1) L Chloride Level 101mmol/L (98-107) Carbon Dioxide Level 26mmol/L (21-32) Anion Gap 14 (6-14) Blood Urea Nitrogen 15mg/dL (7-20) Creatinine 0.6mg/dL (0.6-1.0) Estimated GFR (Cockcroft-Gault) 132.0 BUN/Creatinine Ratio 25 (6-20) H Glucose Level 96mg/dL (70-99) Calcium Level 8.8mg/dL (8.5-10.1) Total Bilirubin 1.4mg/dL (0.2-1.0) H Aspartate Amino Transferase (AST) 15U/L (15-37) Alanine Aminotransferase (ALT) 13U/L (14-59) L Alkaline Phosphatase 69U/L (46-116) C-Reactive Protein, Quantitative 70.5mg/L (0-3.3) H Total Protein 8.4g/dL (6.4-8.2) H Albumin 3.7g/dL (3.4-5.0) Albumin/Globulin Ratio 0.8 (1.0-1.7) L Laboratory Tests 10/28/16 00:30 Laboratory Tests 10/28/16 00:30 EKG EKG [] Radiology/Procedures Radiology/Procedures [] Course & Med Decision Making Course & Med Decision Making Pertinent Labs and Imaging studies reviewed. (See chart for details) [] Dragon Disclaimer Dragon Disclaimer This electronic medical record was generated, in whole or in part, using a voice recognition dictation system. Departure Departure Impression: Primary Impression: Cellulitis Additional Impression: Cephalic vein thrombosis Disposition: 09 ADMITTED INPATIENT Admitting Physician: Monica France Condition: IMPROVED Referrals: NO PCP (PCP) Problem Qualifiers EBONY MALDONADO MD Oct 28, 2016 02:26
[2016-10-28] MEDS ORDERED: MORPHINE SULFATE 2 MG/ML DISP.SYRIN. IV PRN (02:30)
[2016-10-28] MEDS ORDERED: ACETAMINOPHEN 325 MG TABLET. PO PRN (02:30)
[2016-10-28] MEDS ORDERED: ONDANSETRON PF 4 MG/2 ML VIAL. IV PRN ×2 (02:30→09:26)
[2016-10-28 03:35] LABS: HYPOCHROMIA MARKED; MICROCYTOSIS MARKED; PLT ESTIMATE ADEQUATE (ADEQUATE); POIKILOCYTOSIS MOD; POLYCHROMASIA SLIGHT; SPHEROCYTES OCC
[2016-10-28 03:36] LABS: OVALOCYTES OCC; ROULEAUX PRESENT; TARGET CELLS OCC; TEAR DROP CELLS OCC
[2016-10-28] MEDS: VANCOMYCIN PER PHARMACY MC PRN ×2 (03:40→04:00)
--- NOTE | 2016-10-28 04:03 | ACF ---
Admit Criteria Forms Admit Criteria Forms Admit Criteria Forms CELLULITIS Clinical Indications for Admission to Inpatient Care (Place 'X' for any and all applicable criteria): Admission is indicated for ANY ONE of the following(1)(2)(3)(4)(5): [ ]I. Limb-threatening infection [ ]II. High-risk comorbid condition as indicated by ANY ONE of the following: [ ]a) Uncontrolled diabetes (eg, HbA1c greater than 10% (0.1)) [ ]b) Cirrhosis [ ]c) Neutropenia [ ]d) Asplenia [ ]e) Immunosuppression [ ]f) Symptomatic heart failure [ ]III. Failure of outpatient therapy as indicated by ALL of the following: [ ]a) Progression or no improvement after adequate trial (minimum of 48 hours, with longer period for stable lower extremity infection) [ ]b) Adequate antibiotic regimen as indicated by use of ANY ONE of the following: [ ]i) First-generation cephalosporin (e.g., cephalexin) [ ]ii) Antistaphylococcal penicillin (e.g., dicloxacillin) [ ]iii) Penicillin-allergic patient regimen (clindamycin, extended-spectrum fluoroquinolone, or doxycycline) [ ]iv) Resistant organism (eg, methicillin-resistant Staphylococcus aureus) regimen (6) [ ]c) Outpatient intravenous therapy regimen is not appropriate due to ANY ONE of the following. (7)(8)(9)(10): [ ]i) It was tried and was not successful (eg, progression of infection). [ ]ii) It is not available or cannot be arranged in a clinically appropriate time frame (e.g., the next day). [ ]iii) Clinical presentation (eg, acuity of infection, rapidity of progression, confirmed or suspected bacteremia) is judged to require ALL of the following: [ ]1) Immediate initiation of intravenous therapy ( eg, cannot wait for next day) [ ]2) Intensity of patient monitoring and observation (eg, vital sign measurement, checks for infection progression) that cannot be provided at other than inpatient level of care [ ]IV. Mental status changes [ ]V. Bacteremia [ ]. Hemodynamic instability [ ]VII. Suspected necrotizing soft tissue infection (e.g., gas in tissue)(11)( 12) [ ]VIII. Orbital infection (13)(14) [ ]IX. Associated surgical procedure (e.g., abscess drainage, debridement) not amenable to outpatient, emergency department, or observation care [ ]X. Cutaneous gangrene [ ]XI. High fever (temperature greater than 39.5 degrees C (103.1 degrees F) (oral)) not responsive to outpatient, emergency department, or observation care therapy [X]XIII. Inpatient admission required rather than observation care (Also use Cellulitis: Observation Care as appropriate) because of ANY ONE of the following : [ ]a) Periorbital or perineal infection that is severe or worsening [X]b) Severe pain requiring acute inpatient management [ ]c) IV fluid to replace significant ongoing (e.g., for over 24 hours) losses (greater than 3L/m2 per day) [ ]d) Compartment syndrome monitoring (17) [ ]e) Strict or protective (eg, laminar flow) isolation [ ]f) Urgent debridement or skin grafting [ ]g) Bone or joint debridement [ ]h) Immediate inpatient surgery [ ]i) Other condition, treatment or monitoring requiring inpatient admission Extended stay beyond goal length of stay may be needed for (1)(18): [ ]a) Necrotizing soft tissue infection or fasciitis [ ]b) Gram-negative infection [ ]c) Methicillin-resistant Staphylococcal aureus (MRSA) infection [ ]d) Peripheral venous insufficiency with cellulitis [ ]e) Extensive edema [ ]f) Sepsis or continued Hemodynamic instability [ ]g) Continued high fever or mental status change [ ]h) Bacteremia [ ]i) Active serious comorbid conditions ( eg, heart failure, renal insufficiency) The original [facility] content created by [employer] has been revised. The portions of the content which have been revised are identified through the use of italic text or in bold, and [facility] has neither reviewed nor approved the modified material. All other unmodified content is copyright [facility] Please see references footnoted in the original [facility] [employer] edition 2016 HEIDY TAYLOR Oct 28, 2016 04:03
[2016-10-28 04:30] VITALS: BP 140/83
[2016-10-28] MEDS ORDERED: INFLUENZA VAX SCREEN BY RX. MC ONE (05:00)
[2016-10-28 07:00] VITALS: BP 111/67
[2016-10-28] MEDS ORDERED: FLU VACC QUAD 2016-17 (36MOS+)/PF 0.5 ML SYRINGE. VAX IM ONE (09:00)
[2016-10-28] MEDS: FERROUS SULFATE 325 MG TABLET PO SCH (10:25)
[2016-10-28] MEDS: IBUPROFEN 600 MG TABLET. PO SCH ×3 (10:25→22:05)
--- NOTE | 2016-10-28 10:35 | PDOC1 ---
History and Physical Date of Admission Date of Admission DATE: 10/28/16 TIME: 10:29 Identification/Chief Complaint Chief Complaint R arm pain and swelling prev site of IV Source Source: Chart review, Patient History of Present Illness History of Present Illness 41 y/o AA female who was just here few days ago for ANA from severe menorrhagia from fibroid uterus and an incidental UTI., She went home, but had pain and swellling and redness of her R antecubital area - site of her iV line, NO fevers Went to ER, no white ct but US shows cephalic vein clot, Pt then admitted and ordered IV CLinda and vanc BUt through the night. had some skin hypersensitivity reaction to the vancomycin NO anaphylaixs though Past Medical History Cardiovascular: No pertinent hx Pulmonary: No pertinent hx GI: No pertinent hx Heme/Onc: No pertinent hx Hepatobiliary: No pertinent hx Psych: No pertinent hx Rheumatologic: No pertinent hx Infectious disease: No pertinent hx Renal/: No pertinent hx, Other (menorrahgaia) Endocrine: No pertinent hx Past Surgical History Past Surgical History: No pertinent history Family History Family History: Cancer Social History Smoke: No ALCOHOL: none Drugs: None Current Problem List Problem List Problems Medical Problems: (1) Cellulitis Status: Acute (2) Cephalic vein thrombosis Status: Acute Problems: Current Medications Current Medications Current Medications Vancomycin HCl 1 each 1 each PRN DAILY PRN MC SEE COMMENTS Last administered on 10/28/16 04:00; Start 10/28/16 at 00:30; Stop 10/28/16 at 05:13; Status DC Clindamycin Phosphate 50 ml @ 100 mls/hr Q8HRS IV Last administered on 06:10; Start 10/28/16 at 01:00 Vancomycin HCl/ Sodium Chloride (Iv Sodium Chloride 0.9% 500ml Bag) 500 ml @ 250 mls/hr 1X ONCE IV Last administered on 10/28/16 02:32; Start 10/28/16 at 01 :00; Stop 10/28/16 at 02:59; Status DC Ondansetron HCl (Zofran) 4 mg PRN Q8HRS PRN IV NAUSEA/VOMITING; Start 10/28/16 at 02:30; Stop 10/28/16 at 09:28; Status DC Morphine Sulfate 2 mg PRN Q2HR PRN IV SEVERE PAIN; Start 10/28/16 at 02:30; Stop 10/29/16 at 02:29 Acetaminophen 650 mg 650 mg PRN Q4HRS PRN PO FEVER; Start 10/28/16 at 02:30; Stop 10/29/16 at 02:29 Vancomycin HCl/ Sodium Chloride (Iv Sodium Chloride 0.9% 250ml) 250 ml @ 250 mls/hr Q8HRS IV ; Start 10/28/16 at 14:00; Stop 10/28/16 at 14:00; Status DC Vancomycin HCl 1 each 1X ONCE MC ; Start 10/29/16 at 05:30; Stop 10/29/16 at 05: 30; Status DC Info (Do NOT chart on this placeholder) 0.05 each 1X ONCE MC ; Start 10/28/16 at 05:00; Stop 10/28/16 at 05:01; Status UNV Influenza Virus Vaccine Quadrival (Fluarix Quad [id number] Syringe) 0.5 ml ONCE ONCE VAX IM Last administered on 10/28/16 09:04; Start 10/28/16 at 09:00; Stop 10/28/16 at 09:01; Status DC Ondansetron HCl (Zofran) 4 mg PRN Q6HRS PRN IV NAUSEA/VOMITING; Start 10/28/16 at 09:26 Ibuprofen (Motrin) 600 mg TID PO Last administered on 10/28/16 10:25; Start 10/28/16 at 09:45 Ferrous Sulfate (Feosol) 325 mg DAILYWBKFT PO Last administered on 10/28/16 10: 25; Start 10/28/16 at 09:45 Active Scripts Active Ferrous Sulfate 325 Mg Tablet 1 Tab PO DAILY Bactrim Ds Tablet (Sulfamethoxazole/Trimethoprim) 1 Each Tablet 1 Each PO BID Zofran (Ondansetron Hcl) 4 Mg Tablet 4 Mg PO BID PRN [place] 5-325 Tablet (Acetaminophen/Hydrocodone Bitart) 1 Each Tablet 1 Tab PO PRN Q6HRS PRN Cyclobenzaprine Hcl 10 Mg Tablet 1 Tab PO QHS PRN Tramadol Hcl 50 Mg Tablet 50 Mg PO Q6H PRN Allergies Allergies: Coded Allergies: Penicillins (Unverified Allergy, Severe, throat closes, hives, 09/29/15) ROS General: No: Appetite, Chills, Fatigue, Malaise, Night Sweats, Other PSYCHOLOGICAL ROS: No: Anxiety, Behavioral Disorder, Concentration difficultie , Decreased libido, Depression, Disorientation, Hallucinations, Hostility, Irritablity, Memory difficulties, Mood Swings, Obsessive thoughts, Other, Physical abuse, Sexual abuse, Sleep disturbances, Suicidal ideation Eyes: No Blurry vision, No Decreased vision, No Double vision, No Dry eyes, No Excessive tearing, No Eye Pain, No Itchy Eyes, No Loss of vision, No Other, No Photophobia, No Scotomata, No Uses contacts, No Uses glasses HEENT: No: Epistaxis, Heacaches, Hearing change, Nasal congestion, Nasal discharge, Oral lesions, Other, Sinus pain, Sneezing, Snoring, Sore Throat, Tinnitus, Vertigo, Visual Changes, Vocal changes ALLERGY AND IMMUNOLOGY: No: Hives, Insect Bite Sensitivity, Itchy/Watery Eyes, Nasal Congestion, Other, Post Nasal Drip, Seasonal Allergies Hematological and Lymphatic: No: Bleeding Problems, Blood Clots, Blood Transfusions, Brusing, Night Sweats, Other, Pallor, Swollen Lymph Nodes ENDOCRINE: No: Breast Changes, Galactorrhea, Hair Pattern Changes, Hot Flashes , Malaise/lethargy, Mood Swings, Other, Palpitations, Polydipsia/polyuria, Skin Changes, Temperature Intolerance, Unexpected Weight Changes Breast: No New/Changing Breast Lumps, No Nipple changes, No Nipple discharge, No Other Respiratory: No: Cough, Hemoptysis, Orthopnea, Other, Pleuritic Pain, SOB with excertion, Shortness of breath, Sputum Changes, Stridor, Tachypnea, Wheezing Cardiovascular: No Chest Pain, No Edema, No Lt Headedness, No Orthopnea, No Other, No Palpitations, No Paroxysmal Noc. Dyspnea Gastrointestinal: No Abdominal Pain, No Constipation, No Diarrhea, No Hematochezia, No Melena, No Nausea, No Other, No Vomiting Genitourinary: No , No , No , No , No , No , No , No Discharge, No Dysuria, No Flank Pain, No Frequency, No Hematuria, No Incontinence, No Other, No Pain, No Retention, No Urgency Musculoskeletal: No Gait Disturbance, No Joint Pain, No Joint Stiffness, No Joint Swelling, No Muscle Pain, No Muscular Weakness, No Other, No Pain In:, No Swelling In: Neurological: No Behavorial Changes, No Bowel/Bladder ControlChng, No Confusion , No Dizziness, No Gait Disturbance, No Headaches, No Impaired Coord/balance, No Memory Loss, No Numbness/Tingling, No Other, No Seizures, No Speech Problems , No Tremors, No Visual Changes, No Weakness Skin: Yes Acne (red ness, warmth and swelling R antecubital area, no palpable induration) Physical Exam General: Alert, Oriented X3, Cooperative, No acute distress HEENT: PERRLA, EOMI Lungs: Clear to auscultation, Normal air movement Heart: S1S2, RRR, no thrills, no rubs, no gallops Cardiovascular: S1, S2 Breasts: Normal, Rt breast nml w/o mass, Lt breast nml w/o mass, Nipples normal Abdomen: Normal bowel sounds, Soft, No tenderness, No hepatosplenomegaly, No masses Rectal Exam: not examined PELVIC: Nml ext genitalia Extremities: Other (redness, warmth, swelling and limited rOM of R arm/forearm) Skin: No rashes, No breakdown, No significant lesion Neuro: Normal gait, Normal speech, Strength at 5/5 X4 ext, Normal tone, Sensation intact, Cranial nerves 3-12 NL, Reflexes 2+ Vitals Vitals Vital Signs Date Time Temp Pulse Resp B/P Pulse Ox O2 Delivery O2 Flow Rate FiO2 10/28/16 08:00 Room Air 10/28/16 07:00 98.2 76 18 111/67 99 98.2 Labs Labs Laboratory Tests Test 10/28/16 00:30 White Blood Count 11.7x10^3/uL (4.0-11.0) Red Blood Count 5.87x10^6/uL (3.50-5.40) Hemoglobin 9.2g/dL (12.0-15.5) Hematocrit 33.2% (36.0-47.0) Mean Corpuscular Volume 57fL (79-100) Mean Corpuscular Hemoglobin 16pg (25-35) Mean Corpuscular Hemoglobin Concent 28g/dL (31-37) Red Cell Distribution Width 36.3% (11.5-14.5) Platelet Count 330x10^3/uL (140-400) Neutrophils (%) (Auto) 68% (31-73) Lymphocytes (%) (Auto) 21% (24-48) Monocytes (%) (Auto) 9% (0-9) Eosinophils (%) (Auto) 1% (0-3) Basophils (%) (Auto) 1% (0-3) Neutrophils # (Auto) 8.0x10^3uL (1.8-7.7) Lymphocytes # (Auto) 2.4x10^3/uL (1.0-4.8) Monocytes # (Auto) 1.0x10^3/uL (0.0-1.1) Eosinophils # (Auto) 0.2x10^3/uL (0.0-0.7) Basophils # (Auto) 0.1x10^3/uL (0.0-0.2) Platelet Estimate Adequate (ADEQUATE) Large Platelets Occ Polychromasia Slight Hypochromasia Marked Poikilocytosis Mod Microcytosis Marked Macrocytosis Slight Spherocytes Occ Target Cells Occ Tear Drop Cells Occ Ovalocytes Occ Rouleau Present Erythrocyte Sedimentation Rate 11 (0-25) Sodium Level 141mmol/L (136-145) Potassium Level 3.3mmol/L (3.5-5.1) Chloride Level 101mmol/L (98-107) Carbon Dioxide Level 26mmol/L (21-32) Anion Gap 14 (6-14) Blood Urea Nitrogen 15mg/dL (7-20) Creatinine 0.6mg/dL (0.6-1.0) Estimated GFR (Cockcroft-Gault) 132.0 BUN/Creatinine Ratio 25 (6-20) Glucose Level 96mg/dL (70-99) Calcium Level 8.8mg/dL (8.5-10.1) Total Bilirubin 1.4mg/dL (0.2-1.0) Aspartate Amino Transf (AST/SGOT) 15U/L (15-37) Alanine Aminotransferase (ALT/SGPT) 13U/L (14-59) Alkaline Phosphatase 69U/L (46-116) C-Reactive Protein, Quantitative 70.5mg/L (0-3.3) Total Protein 8.4g/dL (6.4-8.2) Albumin 3.7g/dL (3.4-5.0) Albumin/Globulin Ratio 0.8 (1.0-1.7) Laboratory Tests Test 10/28/16 00:30 White Blood Count 11.7x10^3/uL (4.0-11.0) Red Blood Count 5.87x10^6/uL (3.50-5.40) Hemoglobin 9.2g/dL (12.0-15.5) Hematocrit 33.2% (36.0-47.0) Mean Corpuscular Volume 57fL (79-100) Mean Corpuscular Hemoglobin 16pg (25-35) Mean Corpuscular Hemoglobin Concent 28g/dL (31-37) Red Cell Distribution Width 36.3% (11.5-14.5) Platelet Count 330x10^3/uL (140-400) Neutrophils (%) (Auto) 68% (31-73) Lymphocytes (%) (Auto) 21% (24-48) Monocytes (%) (Auto) 9% (0-9) Eosinophils (%) (Auto) 1% (0-3) Basophils (%) (Auto) 1% (0-3) Neutrophils # (Auto) 8.0x10^3uL (1.8-7.7) Lymphocytes # (Auto) 2.4x10^3/uL (1.0-4.8) Monocytes # (Auto) 1.0x10^3/uL (0.0-1.1) Eosinophils # (Auto) 0.2x10^3/uL (0.0-0.7) Basophils # (Auto) 0.1x10^3/uL (0.0-0.2) Platelet Estimate Adequate (ADEQUATE) Large Platelets Occ Polychromasia Slight Hypochromasia Marked Poikilocytosis Mod Microcytosis Marked Macrocytosis Slight Spherocytes Occ Target Cells Occ Tear Drop Cells Occ Ovalocytes Occ Rouleau Present Erythrocyte Sedimentation Rate 11 (0-25) Sodium Level 141mmol/L (136-145) Potassium Level 3.3mmol/L (3.5-5.1) Chloride Level 101mmol/L (98-107) Carbon Dioxide Level 26mmol/L (21-32) Anion Gap 14 (6-14) Blood Urea Nitrogen 15mg/dL (7-20) Creatinine 0.6mg/dL (0.6-1.0) Estimated GFR (Cockcroft-Gault) 132.0 BUN/Creatinine Ratio 25 (6-20) Glucose Level 96mg/dL (70-99) Calcium Level 8.8mg/dL (8.5-10.1) Total Bilirubin 1.4mg/dL (0.2-1.0) Aspartate Amino Transf (AST/SGOT) 15U/L (15-37) Alanine Aminotransferase (ALT/SGPT) 13U/L (14-59) Alkaline Phosphatase 69U/L (46-116) C-Reactive Protein, Quantitative 70.5mg/L (0-3.3) Total Protein 8.4g/dL (6.4-8.2) Albumin 3.7g/dL (3.4-5.0) Albumin/Globulin Ratio 0.8 (1.0-1.7) VTE Prophylaxis Ordered VTE Prophylaxis Devices: Contraindicated VTE Pharmacological Prophylaxi: Contraindicated Assessment/Plan Assessment/Plan 1. CLot on superficial cephalic vein sec to IV site - THis is not a DVT as the cephalic vein is a superficial vein,. - tx is compress, NSAIDS - dw her - no real signs of infection but she claims it was bad last night and seems to be getting better with IV clinda 2. ANA sec to fibroid uterus s./p BT and IV venofer last admit - hgb 9 today, cont PO ferrous sulfate 3. Advserse rxn to vanc 4. Recent UTI - cont PO cipro If better yolanda, home FERMIN Hale MD Oct 28, 2016 10:35
[2016-10-28 10:53] VITALS: BP 119/77
[2016-10-28] MEDS ORDERED: VANCOMYCIN 1 GM in IV NORMAL SALINE 250ML 250 ML IV SCH (14:00)
[2016-10-28 14:47] VITALS: BP 101/60
[2016-10-28 19:00] VITALS: BP 108/60
[2016-10-28 23:00] VITALS: BP 90/49
[2016-10-29 03:09] VITALS: BP 89/38
[2016-10-29] MEDS: CLINDAMYCIN 600MG PREMIX 50 ML IV SCH (06:18)
[2016-10-29 07:00] VITALS: BP 101/52
[2016-10-29] MEDS: FERROUS SULFATE 325 MG TABLET PO SCH (08:44)
[2016-10-29] MEDS: IBUPROFEN 600 MG TABLET. PO SCH (08:44)
[2016-10-29 10:12] LABS: BASO % 1 % (0-3); EOS % 6 % (0-3); HEMATOCRIT 28.8 % (36.0-47.0); HEMOGLOBIN 8.2 g/dL (12.0-15.5); LYMPH # 1.3 x10^3/uL (1.0-4.8); LYMPH % 26 % (24-48); MEAN CORPUSCULAR HEMOGLOBIN 16 pg (25-35); MEAN CORPUSCULAR HGB CONC 29 g/dL (31-37); MEAN CORPUSCULAR VOLUME 57 fL (79-100); MONO % 11 % (0-9); NEUT % 58 % (31-73); PLATELET COUNT 270 x10^3/uL (140-400); RED BLOOD COUNT 5.07 x10^6/uL (3.50-5.40); RED CELL DISTRIBUTION WIDTH 37.2 % (11.5-14.5)
[2016-10-29 10:42] LABS: CALCIUM 8.4 mg/dL (8.5-10.1); CREATININE 0.6 mg/dL (0.6-1.0); POTASSIUM 3.7 mmol/L (3.5-5.1)
[2016-10-29 11:00] VITALS: BP 102/58
[2016-10-29] MEDS ORDERED: CLIN300C86 PO (11:20)
[2016-10-29] MEDS ORDERED: IBUP-1007 PO (11:20)
--- NOTE | 2016-10-29 11:22 | PDOC3 ---
Discharge Summary Visit Information Date of Admission: Oct 28, 2016 Date of Discharge: Oct 29, 2016 Admitting Diagnosis Comment: Assessment/Plan 1. CLot on superficial cephalic vein sec to IV site - THis is not a DVT as the cephalic vein is a superficial vein,. - tx is compress, NSAIDS - dw her - no real signs of infection but she claims it was bad last night and seems to be getting better with IV clinda 2. ANA sec to fibroid uterus s./p BT and IV venofer last admit - hgb 9 today, cont PO ferrous sulfate 3. Advserse rxn to vanc 4. Recent UTI - cont PO cipro If better yolanda, home yolanda Final Diagnosis Problems Medical Problems: (1) Cellulitis Status: Acute (2) Cephalic vein thrombosis Status: Acute Brief Hospital Course Allergies Allergies Coded Allergies Type Severity Reaction Last Updated Verified Penicillins Allergy Severe throat closes, hives 09/29/15 No Vital Signs Vital Signs Date Time Temp Pulse Resp B/P Pulse Ox O2 Delivery O2 Flow Rate FiO2 10/29/16 08:00 Room Air 10/29/16 07:00 97.5 69 18 101/52 99 97.5 Lab Results Laboratory Tests Test 10/28/16 00:30 10/29/16 09:50 White Blood Count 11.7x10^3/uL (4.0-11.0) 5.0x10^3/uL (4.0-11.0) Red Blood Count 5.87x10^6/uL (3.50-5.40) 5.07x10^6/uL (3.50-5.40) Hemoglobin 9.2g/dL (12.0-15.5) 8.2g/dL (12.0-15.5) Hematocrit 33.2% (36.0-47.0) 28.8% (36.0-47.0) Mean Corpuscular Volume 57fL (79-100) 57fL (79-100) Mean Corpuscular Hemoglobin 16pg (25-35) 16pg (25-35) Mean Corpuscular Hemoglobin Concent 28g/dL (31-37) 29g/dL (31-37) Red Cell Distribution Width 36.3% (11.5-14.5) 37.2% (11.5-14.5) Platelet Count 330x10^3/uL (140-400) 270x10^3/uL (140-400) Neutrophils (%) (Auto) 68% (31-73) 58% (31-73) Lymphocytes (%) (Auto) 21% (24-48) 26% (24-48) Monocytes (%) (Auto) 9% (0-9) 11% (0-9) Eosinophils (%) (Auto) 1% (0-3) 6% (0-3) Basophils (%) (Auto) 1% (0-3) 1% (0-3) Neutrophils # (Auto) 8.0x10^3uL (1.8-7.7) 2.9x10^3uL (1.8-7.7) Lymphocytes # (Auto) 2.4x10^3/uL (1.0-4.8) 1.3x10^3/uL (1.0-4.8) Monocytes # (Auto) 1.0x10^3/uL (0.0-1.1) 0.5x10^3/uL (0.0-1.1) Eosinophils # (Auto) 0.2x10^3/uL (0.0-0.7) 0.3x10^3/uL (0.0-0.7) Basophils # (Auto) 0.1x10^3/uL (0.0-0.2) 0.0x10^3/uL (0.0-0.2) Platelet Estimate Adequate (ADEQUATE) Large Platelets Occ Polychromasia Slight Hypochromasia Marked Poikilocytosis Mod Microcytosis Marked Macrocytosis Slight Spherocytes Occ Target Cells Occ Tear Drop Cells Occ Ovalocytes Occ Rouleau Present Erythrocyte Sedimentation Rate 11 (0-25) 17 (0-25) Sodium Level 141mmol/L (136-145) 144mmol/L (136-145) Potassium Level 3.3mmol/L (3.5-5.1) 3.7mmol/L (3.5-5.1) Chloride Level 101mmol/L (98-107) 107mmol/L (98-107) Carbon Dioxide Level 26mmol/L (21-32) 30mmol/L (21-32) Anion Gap 14 (6-14) 7 (6-14) Blood Urea Nitrogen 15mg/dL (7-20) 16mg/dL (7-20) Creatinine 0.6mg/dL (0.6-1.0) 0.6mg/dL (0.6-1.0) Estimated GFR (Cockcroft-Gault) 132.0 132.0 BUN/Creatinine Ratio 25 (6-20) Glucose Level 96mg/dL (70-99) 95mg/dL (70-99) Calcium Level 8.8mg/dL (8.5-10.1) 8.4mg/dL (8.5-10.1) Total Bilirubin 1.4mg/dL (0.2-1.0) Aspartate Amino Transf (AST/SGOT) 15U/L (15-37) Alanine Aminotransferase (ALT/SGPT) 13U/L (14-59) Alkaline Phosphatase 69U/L (46-116) C-Reactive Protein, Quantitative 70.5mg/L (0-3.3) Total Protein 8.4g/dL (6.4-8.2) Albumin 3.7g/dL (3.4-5.0) Albumin/Globulin Ratio 0.8 (1.0-1.7) Laboratory Tests Test 10/29/16 09:50 White Blood Count 5.0x10^3/uL (4.0-11.0) Red Blood Count 5.07x10^6/uL (3.50-5.40) Hemoglobin 8.2g/dL (12.0-15.5) Hematocrit 28.8% (36.0-47.0) Mean Corpuscular Volume 57fL (79-100) Mean Corpuscular Hemoglobin 16pg (25-35) Mean Corpuscular Hemoglobin Concent 29g/dL (31-37) Red Cell Distribution Width 37.2% (11.5-14.5) Platelet Count 270x10^3/uL (140-400) Neutrophils (%) (Auto) 58% (31-73) Lymphocytes (%) (Auto) 26% (24-48) Monocytes (%) (Auto) 11% (0-9) Eosinophils (%) (Auto) 6% (0-3) Basophils (%) (Auto) 1% (0-3) Neutrophils # (Auto) 2.9x10^3uL (1.8-7.7) Lymphocytes # (Auto) 1.3x10^3/uL (1.0-4.8) Monocytes # (Auto) 0.5x10^3/uL (0.0-1.1) Eosinophils # (Auto) 0.3x10^3/uL (0.0-0.7) Basophils # (Auto) 0.0x10^3/uL (0.0-0.2) Erythrocyte Sedimentation Rate 17 (0-25) Sodium Level 144mmol/L (136-145) Potassium Level 3.7mmol/L (3.5-5.1) Chloride Level 107mmol/L (98-107) Carbon Dioxide Level 30mmol/L (21-32) Anion Gap 7 (6-14) Blood Urea Nitrogen 16mg/dL (7-20) Creatinine 0.6mg/dL (0.6-1.0) Estimated GFR (Cockcroft-Gault) 132.0 Glucose Level 95mg/dL (70-99) Calcium Level 8.4mg/dL (8.5-10.1) Brief Hospital Course Ms. Hernandez is a 41 old [sex] who presented with [ ] 41 y/o AA female who was just here few days ago for ANA from severe menorrhagia from fibroid uterus and an incidental UTI., She went home, but had pain and swellling and redness of her R antecubital area - site of her iV line, NO fevers Went to ER, no white ct but US shows cephalic vein clot, Pt then admitted and ordered IV CLinda and vanc BUt through the night. had some skin hypersensitivity reaction to the vancomycin NO anaphylaixs though Discharge Information Condition at Discharge: Improved, Stable Disposition/Orders: D/C to Home Scheduled Ferrous Sulfate (Ferrous Sulfate) 1 TAB PO DAILY Sulfamethoxazole/Trimethoprim (Bactrim Ds Tablet) 1 EACH PO BID Scheduled PRN Cyclobenzaprine Hcl (Cyclobenzaprine Hcl) 1 TAB PO QHS PRN PRN MUSCLE PAIN Hydrocodone/Apap 5-325 (Aubrey 5-325 Tablet) 1 TAB PO PRN Q6HRS PRN PRN PAIN Ondansetron Hcl (Zofran) 4 MG PO BID PRN PRN NAUSEA/VOMITING Tramadol Hcl (Tramadol Hcl) 50 MG PO Q6H PRN PRN PAIN TERMULO,FERMIN Y MD Oct 29, 2016 11:22
== END 2016-10-29 13:15 | disposition home or self-care (01) | DRG 315 ==
LOC: ER 23:47 → 6 SOUTH 10-28 02:13
PROVIDERS: ADMIT Internal Medicine; ATTEND Internal Medicine
DX: T82.868A Thrombosis due to vascular prosthetic devices, implants and grafts, initial encounter (principal); L03.113 Cellulitis of right upper limb; D25.9 Leiomyoma of uterus, unspecified; T36.8X5A Adverse effect of other systemic antibiotics, initial encounter; N92.0 Excessive and frequent menstruation with regular cycle; M19.90 Unspecified osteoarthritis, unspecified site; Z88.0 Allergy status to penicillin; Z87.440 Personal history of urinary (tract) infections; D50.9 Iron deficiency anemia, unspecified
CPT/HCPCS: 36415; 80048; 80053; 85007; 85027; 85651; 86140; 90686; 93971; 96374; J3370; J3490; J7040; 99285-25

== ENCOUNTER 2017-02-20 13:46 | Emergency (ER) | payer SELFPAY ==
[~2017-02-20] VITALS: Ht 165.1 cm; Wt 79.8 kg
[~2017-02-20 13:46] MED LIST changes: +CLIN300C8 PO; +IBUP-1007 PO
[2017-02-20 14:16] VITALS: BP 132/63
[2017-02-20] MEDS ORDERED: SULF1TAB24 PO (15:07)
--- NOTE | 2017-02-20 15:07 | PHYS DOC ---
Past Medical History Past Medical History: Arthritis Past Surgical History: No Surgical History Alcohol Use: None Drug Use: None Adult General Chief Complaint Chief Complaint: FOOT INJURY PAIN HPI HPI Patient is a 42 year old female presents to the emergency department stating that she thought that she had a callus on the left outer part of her foot. She states that she had been picking at it and felt that she has an infection in the area now. She states hearing is red warm tender to touch. She denies any drainage or discharge coming from the site. Patient is unsure when her last tetanus immunization occurred. Review of Systems Review of Systems Constitutional: Denies fever or chills [] Eyes: Denies change in visual acuity, redness, or eye pain [] HENT: Denies nasal congestion or sore throat [] Respiratory: Denies cough or shortness of breath [] Cardiovascular: No additional information not addressed in HPI [] GI: Denies abdominal pain, nausea, vomiting, bloody stools or diarrhea [] : Denies dysuria or hematuria [] Musculoskeletal: Denies back pain... Left lateral part of the foot along the fifth metatarsal area Integument: Denies rash or skin lesions. Left lateral foot with redness warmth tenderness along the distal part of the metatarsal area along the fifth toe Neurologic: Denies headache, focal weakness or sensory changes [] Endocrine: Denies polyuria or polydipsia [] Allergies Allergies Allergies Coded Allergies Type Severity Reaction Last Updated Verified Penicillins Allergy Severe throat closes, hives 09/29/15 No Physical Exam Physical Exam Constitutional: Well developed, well nourished, no acute distress, non-toxic appearance. [] HENT: Normocephalic, atraumatic, bilateral external ears normal, oropharynx moist, no oral exudates, nose normal. [] Eyes: PERRLA, EOMI, conjunctiva normal, no discharge. [] Neck: Normal range of motion, no tenderness, supple, no stridor. [] Cardiovascular:Heart rate regular rhythm Lungs & Thorax: No respiratory distress noted Skin: Warm, dry, no erythema, no rash. Patient with a area on the left lateral foot along the fifth metatarsal tarsal area, distal that is red and tender and warm to touch. It appears to be along the side of the callus. No drainage or discharge noted from the site. Peripheral pulses 2+ cap refill brisk less than 2 seconds. Good sensation noted to the toes. Back: No tenderness Extremities: No tenderness, no cyanosis, no clubbing, ROM intact, no edema. [] Neurologic: Alert and oriented X 3, normal motor function, normal sensory function, no focal deficits noted. [] Psychologic: Affect normal, judgement normal, mood normal. [] Current Patient Data Vital Signs Vital Signs Date Time Temp Pulse Resp B/P (MAP) Pulse Ox O2 Delivery O2 Flow Rate FiO2 02/20/17 14:16 98.2 74 20 95 Room Air 98.2 EKG EKG [] Radiology/Procedures Radiology/Procedures [] Course & Med Decision Making Course & Med Decision Making Pertinent Labs and Imaging studies reviewed. (See chart for details) Patient will be placed on Bactrim her tetanus immunization will be updated here the emergency department. She was recommended to do warm Epsom salt soaks 4-5 times a day for 20 minutes at a time. Patient was provided with signs and symptoms to return back to the emergency department. Patient was also instructed to follow-up with her primary care physician in the next 3-5 days. Tylenol or ibuprofen for pain and discomfort. Patient agrees with discharge instructions treatment regimens and follow-up recommendations. [] Dragon Disclaimer Dragon Disclaimer This electronic medical record was generated, in whole or in part, using a voice recognition dictation system. Departure Departure Impression: Primary Impression: Cellulitis of left foot excluding toes Disposition: 01 HOME, SELF-CARE Condition: STABLE Referrals: NO PCP (PCP) Patient Instructions: Cellulitis, [id number] Additional Instructions: Keep the area clean and dry as much as possible. Warm Epsom salt soaks 4-5 times a day for 20 minutes at a time. Medication as prescribed. Tylenol or ibuprofen for pain and discomfort. Follow-up with your primary care physician in the next 3-5 days. Return back to emergency prior signs symptoms of become worse. Scripts Sulfamethoxazole/Trimethoprim (BACTRIM DS TABLET) 1 Each Tablet 1 TAB PO BID, #20 TAB Prov: ELIANA PONCE APRN 02/20/17 ELIANA PONCE APRN Feb 20, 2017 15:07
[2017-02-20] MEDS ORDERED: DIPHTH,PERTUSS(ACELL),TET TOX 0.5 ML DISP.SYRIN. VAX IM ONE (15:15)
== END 2017-02-20 15:24 | disposition home or self-care (01) ==
LOC: ER 13:46
DX: L03.116 Cellulitis of left lower limb (principal); M19.90 Unspecified osteoarthritis, unspecified site; Z88.0 Allergy status to penicillin
CPT/HCPCS: 90471; 90715; 99283-25

== ENCOUNTER 2017-04-06 00:02 | Emergency (ER) | payer SELFPAY ==
[~2017-04-06] VITALS: Ht 165.1 cm; Wt 84.8 kg
[2017-04-06 00:13] VITALS: BP 120/58
[2017-04-06] MEDS ORDERED: CLOB15OI TP (00:24)
--- NOTE | 2017-04-06 00:25 | PHYS DOC ---
Past Medical History Past Medical History: Arthritis Past Surgical History: No Surgical History Alcohol Use: None Drug Use: None Adult General Chief Complaint Chief Complaint: SKIN PROBLEM HPI HPI Patient is a 42 year old female who presents ambulatory from the ED with a complaint of multiple itchy skin lesions. The patient noticed the first skin lesion Tuesday morning on her left forearm, she took a nap, then woke up with several other skin lesions. They are very itchy. He has been scratching them. She has not been exposed to anything that she knows of. [place] in the grass and garden. Review of Systems Review of Systems Constitutional: Denies fever or chills [] Allergies Allergies Allergies Coded Allergies Type Severity Reaction Last Updated Verified Penicillins Allergy Severe throat closes, hives 09/29/15 No vancomycin Allergy Intermediate rash/itching 03/10/17 Yes Physical Exam Physical Exam Constitutional: Well developed, well nourished, no acute distress, non-toxic appearance. Alert, mentating normally. HENT: Normocephalic, atraumatic, bilateral external ears normal, nose normal. [] Eyes: conjunctiva normal, no discharge. [] Neck: Normal range of motion, no stridor. [] Skin: Warm, dry, there are scattered lesions on the arms, 1 or 2 on the back, that are 1 x 2 cm oval raised red lesions with a red more raised dot in the middle. There are no vesicles. The lesions appear consistent with insect bites. Extremities: No tenderness, no cyanosis, no clubbing, ROM intact, no edema. [] Current Patient Data Vital Signs Vital Signs Date Time Temp Pulse Resp B/P (MAP) Pulse Ox O2 Delivery O2 Flow Rate FiO2 04/06/17 00:13 98.0 79 20 99 Room Air 98.0 EKG EKG [] Radiology/Procedures Radiology/Procedures [] Course & Med Decision Making Course & Med Decision Making Pertinent Labs and Imaging studies reviewed. (See chart for details) 42-year-old female with multiple itchy skin lesions, appearance consistent with insect bites. There is no sign of anything more serious than insect bites, no secondary infection. [] Dragon Disclaimer Dragon Disclaimer This electronic medical record was generated, in whole or in part, using a voice recognition dictation system. Departure Departure Impression: Primary Impression: Insect bites Disposition: HOME, SELF-CARE Condition: STABLE Referrals: NO PCP (PCP) Additional Instructions: Apply a dot of ointment that is half the size of a pea to each spot and rubbed in well, after your shower. Do this once a day until better. It will take several days for the swelling and redness to completely go away, but the itching should be improved by the ointment. Scripts Clobetasol Propionate (CLOBETASOL PROPIONATE) 15 Gm Oint...g. 1 BEE TP BID, #15 GM Prov: BIJU NORMAN MD 04/06/17 BIJU NORMAN MD Apr 06, 2017 00:24
== END 2017-04-06 00:30 | disposition home or self-care (01) ==
LOC: ER 00:02
DX: S50.862A Insect bite (nonvenomous) of left forearm, initial encounter (principal); M19.90 Unspecified osteoarthritis, unspecified site; Z88.0 Allergy status to penicillin; Z88.1 Allergy status to other antibiotic agents; W57.XXXA Bitten or stung by nonvenomous insect and other nonvenomous arthropods, initial encounter; Y93.89 Activity, other specified; Y99.8 Other external cause status; Y92.89 Other specified places as the place of occurrence of the external cause
CPT/HCPCS: 99283

== ENCOUNTER 2017-06-15 23:59 | Emergency (ER) | payer SELFPAY ==
[~2017-06-15] VITALS: Ht 165.1 cm; Wt 84.8 kg
[~2017-06-15 23:59] MED LIST changes: +CLOB15OI TP
[2017-06-16 00:37] VITALS: BP 123/60
[2017-06-16] MEDS ORDERED: PRED20TA PO (00:38)
[2017-06-16] MEDS ORDERED: CEPH500T PO (00:38)
--- NOTE | 2017-06-16 00:38 | PHYS DOC ---
Past Medical History Past Medical History: Arthritis Past Surgical History: No Surgical History Alcohol Use: None Drug Use: None Adult General Chief Complaint Chief Complaint: SORE THROAT HPI HPI Patient is a 42 year old female presents to the emergency room stating that she has a sore throat that started yesterday. Patient states that she has had a fever at home. She states that she has had a decreased appetite and feels as though she cannot eat. Patient states that she has able to drink fluids unable to keep them down. Patient states that she is allergic to penicillin. She denies any nausea vomiting, or diarrhea. Review of Systems Review of Systems Constitutional: Denies fever or chills [] Eyes: Denies change in visual acuity, redness, or eye pain [] HENT: Denies nasal congestion complaint of sore throat [] Respiratory: Denies cough or shortness of breath [] Cardiovascular: No additional information not addressed in HPI [] GI: Denies abdominal pain, nausea, vomiting, bloody stools or diarrhea [] : Denies dysuria or hematuria [] Musculoskeletal: Denies back pain or joint pain [] Integument: Denies rash or skin lesions [] Neurologic: Denies headache, focal weakness or sensory changes [] Endocrine: Denies polyuria or polydipsia [] Allergies Allergies Allergies Coded Allergies Type Severity Reaction Last Updated Verified Penicillins Allergy Severe throat closes, hives 09/29/15 No vancomycin Allergy Intermediate rash/itching 03/10/17 Yes Physical Exam Physical Exam Constitutional: Well developed, well nourished, no acute distress, non-toxic appearance. [] HENT: Normocephalic, atraumatic, bilateral external ears normal, oropharynx moist, no oral exudates, nose normal. Bilateral tympanic membranes appear to be normal. Throat with bilateral tonsils erythematous with no exudate noted. No uvula deviation noted. Eyes: PERRLA, EOMI, conjunctiva normal, no discharge. [] Neck: Normal range of motion, no tenderness, supple, no stridor. [] Cardiovascular:Heart rate regular rhythm, no murmur [] Lungs & Thorax: Bilateral breath sounds clear to auscultation [] Skin: Warm, dry, no erythema, no rash. [] Extremities: No tenderness, no cyanosis, no clubbing, ROM intact, no edema. [] Neurologic: Alert and oriented X 3, normal motor function, normal sensory function, no focal deficits noted. [] Psychologic: Affect normal, judgement normal, mood normal. [] EKG EKG [] Radiology/Procedures Radiology/Procedures [] Course & Med Decision Making Course & Med Decision Making Pertinent Labs and Imaging studies reviewed. (See chart for details) Patient's rapid strep was positive. Patient will be placed on Keflex due to her being allergic to penicillin. She'll be provided with prednisone. Recommended plenty of fluids. Also recommended shakes and molds to help keep herself hydrated and provided nutrition. Patient will be discharged home in stable condition signs and symptoms to return back to emergency department as been provided. All questions and concerns been answered at patient's bedside. Patient agrees with discharge instructions treatment regimens and follow-up recommendations. [] Dragon Disclaimer Dragon Disclaimer This electronic medical record was generated, in whole or in part, using a voice recognition dictation system. Departure Departure Impression: Primary Impression: Strep throat Disposition: HOME, SELF-CARE Condition: STABLE Referrals: NO PCP (PCP) Patient Instructions: Strep Throat, [id number] Additional Instructions: Activity as tolerated. Medications as prescribed. Drink plenty of fluids such as water propel or Gatorade, no shakes or months will also be effective for you. Tylenol or ibuprofen for pain and discomfort. Follow-up to primary care physician in the next 5-7 days. Return back to emergency prior signs symptoms of become worse. Scripts Prednisone (PREDNISONE) 20 Mg Tablet 40 MG PO DAILY for 7 Days, #14 TAB Prov: ELIANA PONCE APRN 06/16/17 Cephalexin (CEPHALEXIN) 500 Mg Tablet 1 TAB PO BID, #20 TAB Prov: ELIANA PONCE SUPERVISOR [employer]LE [employer]OTTLE 06/16/17 ELIANA PONCE APRN Jun 16, 2017 00:38
[2017-06-16 08:25] LABS: NEGATIVE OBC STREP NEG; POSITIVE OBC STREP POS
== END 2017-06-16 00:47 | disposition home or self-care (01) ==
LOC: ER 23:59
DX: J02.0 Streptococcal pharyngitis (principal); M19.90 Unspecified osteoarthritis, unspecified site; Z88.0 Allergy status to penicillin; Z88.1 Allergy status to other antibiotic agents
CPT/HCPCS: 87880; 99283

== ENCOUNTER 2017-09-26 18:07 | Emergency (ER) | payer SELFPAY ==
[2017-09-26] MEDS: DEXAMETHASONE SOD PHOS 20 MG/5 ML VIAL. IM ×2 (19:30)
[2017-09-26] MEDS: KETOROLAC 60 MG/2 ML INJ. IM ×2 (19:30)
== END 2017-09-26 19:35 | disposition home or self-care (01) ==
LOC: ER 18:07
DX: M43.6 Torticollis (principal); M19.90 Unspecified osteoarthritis, unspecified site; Z88.0 Allergy status to penicillin; Z88.1 Allergy status to other antibiotic agents
CPT/HCPCS: 96372; 99284; J1100; J1885

== ENCOUNTER 2017-10-04 05:40 | Inpatient (IN) | payer BC ==
[2017-10-04 06:35] LABS: ADD MAN DIFF? NO; BILIRUBIN,URINE NEGATIVE (NEG); CLARITY,URINE CLEAR; COLOR,URINE YELLOW; GLUCOSE,URINE NEGATIVE (NEG); NITRITE,URINE NEGATIVE (NEG); PROTEIN,URINE NEGATIVE (NEG-TRACE); UROBILINOGEN,URINE 0.2 mg/dL (0.2 mg/dL)
[2017-10-04 06:40] LABS: BASO # 0.1 x10^3/uL (0.0-0.2); BASO % 1 % (0-3); EOS # 0.2 x10^3/uL (0.0-0.7); EOS % 4 % (0-3); HEMATOCRIT 25.1 % (36.0-47.0); LYMPH % 40 % (24-48); MEAN CORPUSCULAR HEMOGLOBIN 14 pg (25-35); MEAN CORPUSCULAR HGB CONC 28 g/dL (31-37); MEAN CORPUSCULAR VOLUME 51 fL (79-100); MONO # 0.7 x10^3/uL (0.0-1.1); MONO % 13 % (0-9); NEUT % 41 % (31-73); PLATELET COUNT 357 x10^3/uL (140-400); RED BLOOD COUNT 4.94 x10^6/uL (3.50-5.40); RED CELL DISTRIBUTION WIDTH 20.6 % (11.5-14.5); WHITE BLOOD COUNT 4.9 x10^3/uL (4.0-11.0)
[2017-10-04] MEDS: IV NORMAL SALINE 1000ML BAG 1,000 ML IV (06:41)
[2017-10-04 06:47] LABS: INR 1.1 (0.8-1.1); PARTIAL THROMBOPLASTIN TIME 25 SEC (24-38); PROTHROMBIN TIME PATIENT 13.1 SEC (11.7-14.0)
[2017-10-04 06:56] LABS: ANION GAP 10 (6-14); BLOOD UREA NITROGEN 15 mg/dL (7-20); CALCIUM 9.1 mg/dL (8.5-10.1); CARBON DIOXIDE 27 mmol/L (21-32); CHLORIDE 102 mmol/L (98-107); CREATININE 0.6 mg/dL (0.6-1.0); GFR 131.4; GLUCOSE 92 mg/dL (70-99); POTASSIUM 3.8 mmol/L (3.5-5.1); SODIUM 139 mmol/L (136-145); SQUAMOUS EPITHELIAL CELL,UR MANY /LPF
[2017-10-04 06:57] LABS: BACTERIA,URINE MANY /HPF (0-FEW)
[2017-10-04 06:58] LABS: RBC,URINE OCC /HPF (0-2)
[2017-10-04 07:02] LABS: ALBUMIN 3.6 g/dL (3.4-5.0); ALK PHOS 68 U/L (46-116); ALT (SGPT) 11 U/L (14-59); AST (SGOT) 7 U/L (15-37); DIRECT BILIRUBIN 0.2 mg/dL (0.0-0.2); LIPASE 94 U/L (73-393); TOTAL BILIRUBIN 0.8 mg/dL (0.2-1.0); TOTAL PROTEIN 7.9 g/dL (6.4-8.2)
[2017-10-04 07:16] LABS: CKMB MASS < 0.5 ng/mL (0.0-3.6); CREATINE KINASE 75 U/L (26-192)
[2017-10-04 08:01] LABS: HYPOCHROMIA MARKED; PLT ESTIMATE ADEQUATE (ADEQUATE); POIKILOCYTOSIS PRESENT; POLYCHROMASIA PRESENT
[2017-10-04 08:02] LABS: ANISOCYTOSIS MOD; MICROCYTOSIS MARKED
[2017-10-04 08:03] LABS: OVALOCYTES PRESENT; SCHISTOCYTES FEW; TARGET CELLS FEW; TEAR DROP CELLS FEW
[2017-10-04 08:36] LABS: NEG OBC UR NEG; POS OBC UR POS; U PREG PATIENT NEGATIVE (NEG)
[2017-10-04] MEDS ORDERED: levOFLOXacin PER PHARMACY. MC (08:45)
[2017-10-04] MEDS ORDERED: CONTRAST GIVEN MC (09:00)
[2017-10-04] MEDS ORDERED: ONDANSETRON PF 4 MG/2 ML VIAL. IV (09:30)
[2017-10-04] MEDS: IOHEXOL 300 MG/ML 100ML VIAL. IV (09:55)
[2017-10-04] MEDS: IOHEXOL 240 MG/ML 50ML VIAL. PO (09:55)
[2017-10-04 12:34] LABS: NEGATIVE OBC STREP NEG; POSITIVE OBC STREP POS
[2017-10-04] MEDS ORDERED: HYDROcodone/APAP 5/325MG 1 TAB TABLET PO (13:00)
[2017-10-04] MEDS ORDERED: traMADol 50 MG TABLET PO (13:00)
[2017-10-04] MEDS ORDERED: ONDANSETRON ODT 4 MG TAB.RAPDIS. PO (13:15)
[2017-10-04] MEDS: FLU VACC QS2017-18 (36MOS+)/PF 0.5 ML SYRINGE. VAX IM (15:30)
[2017-10-04] MEDS: CLINDAMYCIN 600MG PREMIX 50 ML IV ×2 (16:13→20:39)
[2017-10-04] MEDS: IV DEXTROSE 5%-LACT RINGERS 1,000 ML IV (16:14)
[2017-10-04] MEDS: LACTOBACILLUS RHAMNOSUS GG 1 CAPSULE. PO (20:38)
[2017-10-04] MEDS ORDERED: SMZ/TMP 800/160MG TABLET. PO (21:00)
[2017-10-04] MEDS ORDERED: NON FORMULARY ITEM (Cephalexin 1 TAB) PO (21:00)
[2017-10-04] MEDS ORDERED: CLOBETASOL EMOLLIENT 0.05% TOPICAL CREAM 15GM TUBE. TP (21:00)
[2017-10-04 22:20] LABS: C DIFF BY PCR Negative (Negative)
[2017-10-05 03:48] LABS: CROSSMATCH AHG 1 2
[2017-10-05] MEDS: IV DEXTROSE 5%-LACT RINGERS 1,000 ML IV ×4 (06:18→23:35)
[2017-10-05] MEDS: CLINDAMYCIN 600MG PREMIX 50 ML IV ×3 (06:18→20:53)
[2017-10-05] MEDS ORDERED: MORPHINE SULFATE 2 MG/ML DISP.SYRIN. IV (07:00)
[2017-10-05] MEDS ORDERED: PROCHLORPERAZINE 10 MG/2 ML VIAL. IV (07:00)
[2017-10-05] MEDS ORDERED: LIDOCAINE 1% PF 2 ML VIAL. ID (07:00)
[2017-10-05] MEDS ORDERED: HYDROmorphone 2 MG/ML VIAL IV (07:00)
[2017-10-05] MEDS ORDERED: fentaNYL PF VIAL 100 MCG/2 ML VIAL IV (07:00)
[2017-10-05] MEDS ORDERED: OXYTOCIN 10 UNIT/ML VIAL. (07:33)
[2017-10-05] MEDS ORDERED: miSOPROStol 200MCG TAB 200 MCG TABLET (07:33)
[2017-10-05 08:36] LABS: ADD MAN DIFF? NO
[2017-10-05 08:40] LABS: BASO % 1 % (0-3); EOS # 0.2 x10^3/uL (0.0-0.7); EOS % 3 % (0-3); HEMATOCRIT 29.6 % (36.0-47.0); LYMPH # 1.9 x10^3/uL (1.0-4.8); LYMPH % 29 % (24-48); MEAN CORPUSCULAR HEMOGLOBIN 18 pg (25-35); MEAN CORPUSCULAR HGB CONC 30 g/dL (31-37); MEAN CORPUSCULAR VOLUME 58 fL (79-100); MONO # 0.7 x10^3/uL (0.0-1.1); MONO % 11 % (0-9); NEUT # 3.6 x10^3uL (1.8-7.7); NEUT % 56 % (31-73); PLATELET COUNT 309 x10^3/uL (140-400); RED BLOOD COUNT 5.09 x10^6/uL (3.50-5.40); RED CELL DISTRIBUTION WIDTH 31.6 % (11.5-14.5); WHITE BLOOD COUNT 6.5 x10^3/uL (4.0-11.0)
[2017-10-05 08:58] LABS: ALBUMIN 3.2 g/dL (3.4-5.0); ALBUMIN/GLOBULIN RATIO 0.8 (1.0-1.7); ALK PHOS 62 U/L (46-116); ALT (SGPT) 10 U/L (14-59); ANION GAP 9 (6-14); AST (SGOT) 8 U/L (15-37); BLOOD UREA NITROGEN 11 mg/dL (7-20); BUN/CREATININE RATIO 22 (6-20); CALCIUM 8.7 mg/dL (8.5-10.1); CARBON DIOXIDE 27 mmol/L (21-32); CHLORIDE 105 mmol/L (98-107); CREATININE 0.5 mg/dL (0.6-1.0); GFR 162.2; GLUCOSE 95 mg/dL (70-99); POTASSIUM 3.8 mmol/L (3.5-5.1); SODIUM 141 mmol/L (136-145); TOTAL BILIRUBIN 1.5 mg/dL (0.2-1.0); TOTAL PROTEIN 7.3 g/dL (6.4-8.2)
[2017-10-05] MEDS ORDERED: FERROUS SULFATE 325 MG TABLET. PO (09:00)
[2017-10-05] MEDS: LACTOBACILLUS RHAMNOSUS GG 1 CAPSULE. PO ×2 (09:00→20:52)
[2017-10-05] MEDS ORDERED: SALIVA STIMULANT AGENT 44ML SPRAY BOTTLE. PO (12:15)
[2017-10-05] MEDS: IV RINGERS,LACTATED 1000ML 1,000 ML IV (12:48)
[2017-10-05] MEDS ORDERED: DEXAMETHASONE SOD PHOS 20 MG/5 ML VIAL. (12:55)
[2017-10-05] MEDS ORDERED: LIDOCAINE 1% PF 5 ML VIAL. (12:55)
[2017-10-05] MEDS ORDERED: MIDAZOLAM HCL/PF 2 MG/2 ML VIAL. (12:55)
[2017-10-05] MEDS ORDERED: LIDOCAINE 2% PF Vial for OR 5 ML VIAL. (12:55)
[2017-10-05] MEDS ORDERED: fentaNYL PF VIAL 100 MCG/2 ML VIAL (12:55)
[2017-10-05] MEDS ORDERED: ONDANSETRON PF 4 MG/2 ML VIAL. (12:55)
[2017-10-05] MEDS ORDERED: PROPOFOL 20 ML IV (12:55)
[2017-10-05] MEDS ORDERED: SEVOFLURANE 16 TO 30 MINUTES. IH (13:45)
[2017-10-05] MEDS: fentaNYL PF VIAL 100 MCG/2 ML VIAL IV ×2 (14:13→14:29)
[2017-10-05] MEDS: ACETAMINOPHEN 325 MG TABLET. PO (18:39)
[2017-10-06] MEDS: CLINDAMYCIN 600MG PREMIX 50 ML IV (05:41)
[2017-10-06] MEDS: PHENOL ORAL SPRAY 177ML BOTTLE. PO ×2 (07:33→13:02)
[2017-10-06] MEDS: ACETAMINOPHEN 325 MG TABLET. PO (07:33)
[2017-10-06] MEDS: IV DEXTROSE 5%-LACT RINGERS 1,000 ML IV (07:33)
[2017-10-06] MEDS: LACTOBACILLUS RHAMNOSUS GG 1 CAPSULE. PO (09:08)
[2017-10-06] MEDS: FLU VACC QS2017-18 (36MOS+)/PF 0.5 ML SYRINGE. VAX IM (12:38)
== END 2017-10-06 13:12 | disposition home or self-care (01) | DRG 745 ==
LOC: ER 05:40 → 5 NORTH 08:30
PROC: 0UDB7ZX Extraction of Endometrium, Via Natural or Artificial Opening, Diagnostic (ICD-10-PCS; principal; 2017-10-05 12:00)
PROC: 30233N1 Transfusion of Nonautologous Red Blood Cells into Peripheral Vein, Percutaneous Approach (ICD-10-PCS; 2017-10-05 13:11)
DX: D25.9 Leiomyoma of uterus, unspecified (principal); D50.9 Iron deficiency anemia, unspecified; N93.8 Other specified abnormal uterine and vaginal bleeding; N83.201 Unspecified ovarian cyst, right side; N84.0 Polyp of corpus uteri; J04.0 Acute laryngitis; J02.9 Acute pharyngitis, unspecified; M19.90 Unspecified osteoarthritis, unspecified site; N92.0 Excessive and frequent menstruation with regular cycle; Z80.9 Family history of malignant neoplasm, unspecified; Z83.49 Family history of other endocrine, nutritional and metabolic diseases; Z88.1 Allergy status to other antibiotic agents; Z88.0 Allergy status to penicillin; Z82.49 Family history of ischemic heart disease and other diseases of the circulatory system; Z90.710 Acquired absence of both cervix and uterus
CPT/HCPCS: 36415; 74177; 80048; 80053; 80076; 81001; 81025; 82553; 83690; 85025; 85610; 85730; 86850; 86870; 86880; 86900; 86901; 86902; 86922; 87070; 87086; 87186; 87324; 87880; 88305; 90686; 96361; 96365; 99285; 99285-25; J1100; J1956; J2250; J2405; J2590; J2704; J3010; J3490; J7030; J7120; P9016; Q9966; Q9967

== ENCOUNTER → 2017-11-16 | Outpatient (CLI) | payer BC ==
[2017-11-16 11:55] LABS: ADD MAN DIFF? NO
[2017-11-16 12:10] LABS: BASO # 0.1 x10^3/uL (0.0-0.2); BASO % 3 % (0-3); EOS # 0.1 x10^3/uL (0.0-0.7); EOS % 3 % (0-3); HEMATOCRIT 28.1 % (36.0-47.0); HEMOGLOBIN 8.1 g/dL (12.0-15.5); LYMPH # 1.5 x10^3/uL (1.0-4.8); LYMPH % 34 % (24-48); MEAN CORPUSCULAR HEMOGLOBIN 17 pg (25-35); MEAN CORPUSCULAR HGB CONC 29 g/dL (31-37); MEAN CORPUSCULAR VOLUME 58 fL (79-100); MONO # 0.5 x10^3/uL (0.0-1.1); MONO % 12 % (0-9); NEUT # 2.2 x10^3uL (1.8-7.7); NEUT % 49 % (31-73); PLATELET COUNT 295 x10^3/uL (140-400); RED BLOOD COUNT 4.87 x10^6/uL (3.50-5.40); WHITE BLOOD COUNT 4.6 x10^3/uL (4.0-11.0)
[2017-11-16 14:12] LABS: ANISOCYTOSIS MOD; HYPOCHROMIA MOD; PLT ESTIMATE ADEQUATE (ADEQUATE)
[2017-11-16 14:13] LABS: MICROCYTOSIS MOD; OVALOCYTES FEW; SCHISTOCYTES OCC
== END | disposition home or self-care (01) ==
LOC: SURGPAT 11:04
DX: Z01.818 Encounter for other preprocedural examination (principal)
CPT/HCPCS: 36415; 85025; 93005

== ENCOUNTER 2019-08-10 07:07 | Emergency (ER) | payer BC, OTHER ==
[~2019-08-10] VITALS: Ht 165.1 cm; Wt 84.8 kg
[~2019-08-10 07:07] MED LIST changes: +CEPH500T PO; +DIAZ5TAB PO; +DICL50TA4 PO; -FERR-26 PO; +FERR325T14 PO; +HYDR-3164 PO; -HYDR-971 PO; +LORA10TA68 PO; +METH4TAB2 PO; +PRED20TA PO
[2019-08-10 07:12] VITALS: BP 130/67
[2019-08-10] MEDS ORDERED: LIDO15SO2 TOP (07:29)
--- NOTE | 2019-08-10 07:29 | PHYS DOC ---
Past Medical History Past Medical History: Arthritis Past Surgical History: No Surgical History Alcohol Use: None Drug Use: None Adult General Chief Complaint Chief Complaint: MOUTH PROBLEM HPI HPI Patient is a 44-year-old female who presents with complaint of mouth pain that started a few days ago and is progressively getting worse. She states this gotten so sore that is causing a headache. She states the pain is worse if she touches it. She also states that it's worse with chewing. She denies any fever. She states that she had lifted her lip and looked at it and saw a big sore in there.[] Review of Systems Review of Systems Constitutional: Denies fever or chills [] HENT: Positive mouth pain[] Respiratory: Denies cough or shortness of breath [] Cardiovascular: No additional information not addressed in HPI [] Neurologic: Positive headache without focal weakness or sensory changes [] Allergies Allergies Allergies Coded Allergies Type Severity Reaction Last Updated Verified Penicillins Allergy Severe throat closes, hives 10/05/17 No latex Allergy Intermediate Rash 11/16/17 Yes vancomycin Allergy Intermediate rash/itching 10/05/17 Yes Physical Exam Physical Exam Constitutional: Well developed, well nourished, no acute distress, non-toxic appearance. [] HENT: Normocephalic, atraumatic, examination of oral mucosa demonstrates an aphthous ulceration in the crease of the upper lip on the left. [] Cardiovascular:Heart rate regular rhythm, no murmur [] Lungs & Thorax: Bilateral breath sounds clear to auscultation [] EKG EKG [] Radiology/Procedures Radiology/Procedures [] Course & Med Decision Making Course & Med Decision Making Pertinent Labs and Imaging studies reviewed. (See chart for details) [] Dragon Disclaimer Dragon Disclaimer This electronic medical record was generated, in whole or in part, using a voice recognition dictation system. Departure Departure Impression: Primary Impression: Aphthous ulcer of mouth Disposition: 01 HOME, SELF-CARE Condition: STABLE Referrals: NO PCP (PCP) Patient Instructions: Canker Sores Scripts Lidocaine HCl (Lidocaine HCl Viscous) 15 Ml Solution 1 ML TOP Q2HR PRN for MOUTH PAIN, #100 ML Prov: KANE GALLEGOS Jr. DO 08/10/19 KANE GALLEGOS Jr. DO Aug 10, 2019 07:29
== END 2019-08-10 07:38 | disposition home or self-care (01) ==
LOC: ER 07:07
DX: K12.0 Recurrent oral aphthae (principal); R51 Headache; Z88.0 Allergy status to penicillin; Z88.1 Allergy status to other antibiotic agents; Z91.040 Latex allergy status
CPT/HCPCS: 99283

== ENCOUNTER 2019-08-10 22:55 | Emergency (ER) | payer OTHER ==
[~2019-08-10] VITALS: Ht 165.1 cm; Wt 84.8 kg
[~2019-08-10 22:55] MED LIST changes: +LIDO15SO2 TOP
[2019-08-10 23:10] VITALS: BP 128/83
--- NOTE | 2019-08-11 00:07 | PHYS DOC ---
Past Medical History Past Medical History: Arthritis Past Surgical History: No Surgical History Alcohol Use: None Drug Use: None Adult General Chief Complaint Chief Complaint: SORE THROAT HPI HPI 44yo female presents to the emergency department with complaints of sore throat started yesterday. She as well describes fever however is afebrile this time. Patient denies any nausea, vomiting, cough, abdominal pain, headache or visual changes. Status painful to swallow. All other ROS negative unless documented in HPI Review of Systems Review of Systems See Above Allergies Allergies Allergies Coded Allergies Type Severity Reaction Last Updated Verified Penicillins Allergy Severe throat closes, hives 10/05/17 No latex Allergy Intermediate Rash 11/16/17 Yes vancomycin Allergy Intermediate rash/itching 10/05/17 Yes Physical Exam Physical Exam See Above Constitutional: Well developed, well nourished, no acute distress, non-toxic appearance. [] HENT: Normocephalic, atraumatic, bilateral external ears normal, oropharynx moist, no oral exudates,erythema appreciated however no exudate appareciated, nose normal. [] Eyes: PERRLA, EOMI, conjunctiva normal, no discharge. [] Neck: Normal range of motion, minimal tenderness appreciated, supple, no stridor. [] Cardiovascular:Heart rate regular rhythm, no murmur [] Lungs & Thorax: Bilateral breath sounds clear to auscultation [] Abdomen: Bowel sounds normal, soft, no tenderness, no masses, no pulsatile masses. [] Skin: Warm, dry, no erythema, no rash. [] Extremities: No tenderness, no edema. [] Neurologic: Alert and oriented X 3, no focal deficits noted. [] Psychologic: Affect normal, judgement normal, mood normal. [] Current Patient Data Vital Signs Vital Signs Date Time Temp Pulse Resp B/P (MAP) Pulse Ox O2 Delivery O2 Flow Rate FiO2 08/10/19 23:10 98.1 78 19 128/83 (98) 98 Room Air 98.1 EKG EKG [] Radiology/Procedures Radiology/Procedures [] Course & Med Decision Making Course & Med Decision Making Pertinent Labs and Imaging studies reviewed. (See chart for details) []44yo female presents to the emergency department with complaints of sore throat started yesterday. She as well describes fever however is afebrile this time. Patient denies any nausea, vomiting, cough, abdominal pain, headache or visual changes. Status painful to swallow. All other ROS negative unless documented in HPI Strep screen negative Recommend dc home with symptomatic treatment Return precautions provided [employer] Disclaimer Dragon Disclaimer This electronic medical record was generated, in whole or in part, using a voice recognition dictation system. Departure Departure Impression: Primary Impression: Pharyngitis Disposition: HOME, SELF-CARE Condition: STABLE Referrals: UNKNOWN PCP NAME (PCP) Patient Instructions: Viral Pharyngitis Additional Instructions: Recommend follow up with PCP 3 - 5 days Return to the ER with worsening symptoms, intractable pain, fever, altered mental status Tylenol/Motrin as needed for pain Recommend symptomatic treatment - no antibiotic therapy needed Problem Qualifiers Primary Impression: Pharyngitis Pharyngitis/tonsillitis etiology: unspecified etiology Qualified Codes: J02.9 - Acute pharyngitis, unspecified OZ HAMILTON MD Aug 11, 2019 00:07
== END 2019-08-11 00:12 | disposition home or self-care (01) ==
LOC: ER 22:55
DX: J02.9 Acute pharyngitis, unspecified (principal); R50.9 Fever, unspecified; Z88.0 Allergy status to penicillin; Z88.1 Allergy status to other antibiotic agents; Z91.040 Latex allergy status
CPT/HCPCS: 87070; 87880; 99283

== ENCOUNTER 2019-12-06 06:35 | Emergency (ER) | payer OTHER ==
[~2019-12-06] VITALS: Ht 165.1 cm; Wt 85.0 kg
[~2019-12-06 06:35] MED LIST changes: -LIDO15SO2 TOP; +LIDO20SO10 TOP
[2019-12-06 06:46] VITALS: BP 129/94
[2019-12-06] MEDS ORDERED: TRAM-48 PO (07:15)
[2019-12-06] MEDS ORDERED: CYCL10TA2 PO (07:15)
[2019-12-06] MEDS ORDERED: traMADol 50 MG TABLET PO ONE (07:15)
[2019-12-06] MEDS ORDERED: IBUP-1060 PO (07:15)
[2019-12-06] MEDS ORDERED: CYCLOBENZAPRINE 10 MG TABLET. PO ONE (07:15)
[2019-12-06] MEDS ORDERED: METH4TAB2 PO (07:15)
--- NOTE | 2019-12-06 07:15 | PHYS DOC ---
Past Medical History Past Medical History: Arthritis Past Surgical History: No Surgical History Smoking Status: Never Smoker Alcohol Use: None Drug Use: None General Adult EDM: Chief Complaint: LOWER BACK PAIN OR INJURY HPI: HPI: Patient is a 44 year old female with history of arthritis who presents with com plaint of lower back pain. Patient complaining of constant left lower back pain for the last 4 days without radiation as a sharp pain that getting worse with movement. Patient denies injury and focal neuro deficit, fever and chills, abdominal pain, urinary symptoms, vaginal bleeding or discharge or , history of back pain. Patient states recently she works long hours and did not have any break for the last 37 days. Patient used ice and heat and [id number]-[id number] medication without improvement of her condition. Review of Systems: Review of Systems: Constitutional: Denies fever or chills. [] Eyes: Denies change in visual acuity. [] HENT: Denies nasal congestion or sore throat. [] Respiratory: Denies cough or shortness of breath. [] Cardiovascular: Denies chest pain or edema. [] GI: Denies abdominal pain, nausea, vomiting, bloody stools or diarrhea. [] : Denies dysuria. [] Musculoskeletal: Reports back pain Integument: Denies rash. [] Neurologic: Denies headache, focal weakness or sensory changes. [] Endocrine: Denies polyuria or polydipsia. [] Lymphatic: Denies swollen glands. [] Psychiatric: Denies depression or anxiety. [] Heart Score: Risk Factors: Risk Factors: DM, Current or recent (<one month) smoker, HTN, HLP, family history of CAD, obesity. Risk Scores: Score 0 - 3: 2.5% MACE over next 6 weeks - Discharge Home Score 4 - 6: 20.3% MACE over next 6 weeks - Admit for Clinical Observation Score 7 - 10: 72.7% MACE over next 6 weeks - Early Invasive Strategies Current Medications: Current Medications Medications (Trade) Dose Ordered Sig/Shahid Start Time Stop Time Status Last Admin Dose Admin Cyclobenzaprine HCl (Flexeril) 10 mg 1X ONCE 12/06/19 07:15 12/06/19 07:16 Tramadol HCl (Ultram) 50 mg 1X ONCE 12/06/19 07:15 12/06/19 07:16 Allergies: Allergies: Allergies Coded Allergies Type Severity Reaction Last Updated Verified Penicillins Allergy Severe throat closes, hives 10/05/17 No latex Allergy Intermediate Rash 11/16/17 Yes vancomycin Allergy Intermediate rash/itching 10/05/17 Yes Physical Exam: PE: Constitutional: Well developed, well nourished, mild distress, non-toxic appearance. [] HENT: Normocephalic, atraumatic. Eyes: PERRLA, EOMI, conjunctiva normal, no discharge. [] Neck: Normal range of motion, no tenderness, supple, no stridor. [] Cardiovascular:Heart rate regular rhythm, no murmur [] Lungs & Thorax: Bilateral breath sounds clear to auscultation [] Abdomen: Bowel sounds normal, soft, no tenderness, no masses, no pulsatile masses. [] Skin: Warm, dry, no erythema, no rash. [] Back: No midline tenderness, left lower paraspinal muscle spasm, no CVA t enderness. [] Extremities: No tenderness, no cyanosis, no clubbing, ROM intact, no edema. [] Neurologic: Alert and oriented X 3, no focal deficits noted. [] Psychologic: Affect normal, judgement normal, mood normal. [] Current Patient Data: Vital Signs: Vital Signs Date Time Temp Pulse Resp B/P (MAP) Pulse Ox O2 Delivery O2 Flow Rate FiO2 12/06/19 06:46 97.7 85 14 129/94 (106) 100 Room Air 97.7 EKG: EKG: [] Radiology/Procedures: Radiology/Procedures: [] Course & Med Decision Making: Course & Med Decision Making Evaluation of patient inertial 44-year-old female patient with complaining of left lower back pain for 4 days after working every day for more than 1 month. Patient had paraspinal muscle spasm and treated with Flexeril and tramadol in ER. Prescription for Flexeril and tramadol was given and patient was advised to apply ice on her back. 4 days of work excuse was given. I've spoken with the patient and/or caregivers. I've explained the patient's condition, diagnosis and treatment plan based on information available to me at this time. I've answered the patient's and/or caregivers questions and addressed any concerns. The patient and/or caregivers have a good understanding the patient's diagnosis, condition and treatment plan as can be expected at this point. Vital signs have been stabilized. The patient's condition is stable for discharge from the emergency department. The patient will pursue further outpatient evaluation with her primary care provider or other designated consulting physician as outlined in the discharge instructions. Patient and/or caregivers are agreeable to this plan of care and follow-up instructions have been explained in detail. The patient and/or caregivers have received these instructions in written format and expressed understanding of these discharge instructions. The patient and her caregivers are aware that if any significant change in condition or worsening of symptoms should prompt him to immediately return to this of the closest emergency departm ent. If an emergent department is not readily available I would encourage him to call 911. Misty Disclaimer: [employer] Disclaimer: This electronic medical record was generated, in whole or in part, using a voice recognition dictation system. Departure Departure Impression: Primary Impression: Acute myofascial strain of lumbosacral region Qualified Codes: S39.012A - Strain of muscle, fascia and tendon of lower back, initial encounter Disposition: HOME, SELF-CARE (At 0715) Condition: STABLE Referrals: UNKNOWN PCP NAME (PCP) Patient Instructions: Lumbosacral Strain Additional Instructions: Drink plenty of liquids Follow-up with your primary care physician in 3-5 days Return to ER if not getting better Apply ice on your back Thank you for visiting [facility] We appreciate you trusting us with your care. If any additional problems come up don't hesitate to return to visit us. Please follow up with your primary care provider so they can plan additional care if needed and know about the problem that you had. If symptoms worsen come back to the Emergency Department. Any concerning symptoms that start such as chest pain, shortness of air, weakness or numbness on one side of the body, running high fevers or any other concerning symptoms return to the ER. Scripts Tramadol Hcl (ULTRAM) 50 Mg Tablet 50 MG PO Q6HRS PRN for PAIN, #14 TAB 0 Refills Prov: REMEDIOS WANG MD 12/06/19 Methylprednisolone (MEDROL) 4 Mg Tab.ds.pk 1 PKG PO UD for inflammation, #1 PKG Prov: REMEDIOS WANG MD 12/06/19 Ibuprofen (IBUPROFEN) 800 Mg Tablet 800 MG PO PRN Q8HRS PRN for INFLAMMATION, #20 TAB Prov: REMEDIOS WANG MD 12/06/19 Cyclobenzaprine Hcl (CYCLOBENZAPRINE HCL) 10 Mg Tablet 1 TAB PO TID, #21 TAB Prov: REMEDIOS WANG MD 12/06/19 REMEDIOS WANG MD Dec 06, 2019 07:15
== END 2019-12-06 07:24 | disposition home or self-care (01) ==
LOC: ER 06:35
DX: S39.012A Strain of muscle, fascia and tendon of lower back, initial encounter (principal); Z88.1 Allergy status to other antibiotic agents; Z88.0 Allergy status to penicillin; Z91.040 Latex allergy status; X58.XXXA Exposure to other specified factors, initial encounter; Y93.89 Activity, other specified; Y92.89 Other specified places as the place of occurrence of the external cause; Y99.8 Other external cause status
CPT/HCPCS: 99283

== ENCOUNTER 2020-04-21 05:25 | Emergency (ER) | payer OTHER ==
[~2020-04-21] VITALS: Ht 165.1 cm; Wt 85.0 kg
[~2020-04-21 05:25] MED LIST changes: +IBUP-1060 PO; +TRAM-48 PO
[2020-04-21 05:45] VITALS: BP 113/67
[2020-04-21] MEDS ORDERED: CYCL10TA2 PO (06:28)
[2020-04-21] MEDS ORDERED: LIDO1ADH78 TP (06:28)
--- NOTE | 2020-04-21 06:28 | PHYS DOC ---
Past Medical History Past Medical History: Arthritis Additional Past Medical Histor: DEGENERATIVE NERVE DISORDER Past Surgical History: No Surgical History Smoking Status: Never Smoker Alcohol Use: None Drug Use: None General Adult EDM: Chief Complaint: LOWER BACK PAIN OR INJURY HPI: HPI: 45-year-old female past medical history significant for psoriasis, hypertension and degenerative nerve disorder, presents to the ED with complaints of right- sided low back pain and midline lumbar back pain for the past few days, states the pain is now in her right lower neck. Described as sharp, nonradiating, worse with palpation and twisting movements of the back. 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 Sylvia Welch. Is taking tizanidine, meloxicam and Aleve, with no relief. States 2 days ago she was walking backwards up the stairs while carrying a TV when she fell backwards on the stairs after losing her balance- reports back and neck pain started prior to this. States this exacerbated her pain. Denies any history of IV drug use, immunocompromise state, alcoholism, diabetes or incarceration. Review of systems: Denies associated fever, chills, cough, sore throat, chest pain, dyspnea, nausea, vomiting, diarrhea, saddle anesthesia, radiculopathy, sensory or motor deficits, leg swelling, rash, urinary bowel retention or incontinence, gait disturbance, melena, hematochezia or hematemesis. Allergies: Allergies: Allergies Coded Allergies Type Severity Reaction Last Updated Verified Penicillins Allergy Severe throat closes, hives 10/05/17 No latex Allergy Intermediate Rash 11/16/17 Yes vancomycin Allergy Intermediate rash/itching 10/05/17 Yes Physical Exam: PE: Constitutional: Well developed, well nourished, no acute distress, non-toxic appearance. [] HENT: Normocephalic, atraumatic, bilateral external ears normal,nose normal. [] Eyes: EOMI, conjunctiva normal, no discharge. [] Neck: Normal range of motion, no tenderness, supple, no stridor. [] Cardiovascular:Heart rate regular rhythm, no murmur [] Lungs & Thorax: Bilateral breath sounds clear to auscultation [] Abdomen: Bowel sounds normal, soft, no tenderness, no masses, no pulsatile masses. [] Skin: Warm, dry, no erythema, no rash. [] Back: No tenderness, no CVA tenderness, +nonreproducible L4/5 midline back pain w/ right paraspinal tenderness, right-sided T1/2 ttp Extremities: No tenderness, no cyanosis, no clubbing, ROM intact, no edema. [] Neurologic: Alert and oriented X 3, normal motor function, normal sensory function, no focal deficits noted. [] Psychologic: Affect normal, judgement normal, mood normal. [] Current Patient Data: Labs: Laboratory Tests Test 04/21/20 05:40 POC Urine HCG, Qualitative Hcg negative (Negative) Vital Signs: Vital Signs Date Time Temp Pulse Resp B/P (MAP) Pulse Ox O2 Delivery O2 Flow Rate FiO2 04/21/20 05:45 98.2 72 16 113/67 (82) 99 Room Air 98.2 EKG: EKG: [] Radiology/Procedures: Radiology/Procedures: [] Course & Med Decision Making: Course & Med Decision Making Pertinent Labs and Imaging studies reviewed. (See chart for details) Concern for acute on chronic right-sided lumbar back pain with right-sided thoracic neck pain, with no neurologic deficits or radiculopathy. Patient reports this feels like her typical degenerative nerve disorder. We will add Lidoderm patch and muscle relaxers-was discouraged taking 2 NSAIDs at the same time-to discuss this with her primary care physician. Strict ED return precautions were given for neurologic deficits or fever. Encouraged urgent outpatient follow-up with PMD and Ortho. Life-threatening processes were considered but are low suspicion at this time, given history and physical exam. Pt was educated on all prescription medications and adverse effects. All patient's questions were answered and pt was stable at time of discharge. Differential includes aortic dissection, cauda equina syndrome, transverse myelitis, spinal cord compression, epidural abscess or hematoma, osteomyelitis, disc herniation, surgical abdomen, stable or unstable fracture, renal colic/urosepsis, musculoskeletal injury, traumatic injury, intraabdominal or pelvic bleeding, I spoken with the patient and her caregivers. I explained the patient's condition, diagnoses and treatment plan based on the information available to me at this time. I have answered the patient and her caregiver's questions and addressed any concerns. The patient and her caregivers have a good understanding of patient's diagnosis, condition and treatment plan as can be expected at this point. Vital signs have been stable. Patient's condition is stable and appropriate for discharge from the emergency department. Patient will pursue further outpatient evaluation with primary care physician or other designated or consulting physician as outlined in the discharge instructions. The patient and/or caregivers are agreeable to this plan of care and follow-up instructions have been explained in detail. The patient and/or caregivers have received these instructions in written form and have expressed an understanding of the discharge instructions. The patient and/or caregivers are aware that any significant change of condition or worsening of symptoms should prompt immediate return to this or the closest emergency department or call to 911. Misty Disclaimer: Misty Disclaimer: This electronic medical record was generated, in whole or in part, using a voice recognition dictation system. Departure Departure Impression: Primary Impression: Low back pain Additional Impression: Neck pain Disposition: HOME, SELF-CARE Condition: STABLE Referrals: UNKNOWN PCP NAME (PCP) Patient Instructions: Back Exercises, Back Pain, Adult, Musculoskeletal Pain Additional Instructions: Jonnathan Duenas MD-Orthopaedic Surgery [address] [facility], [address] [address] Scripts Lidocaine (Lido Harman) 1 Each Adh..patch 1 EACH TP BID for pain for 4 Days, #8 PATCH 5% patch Prov: LIA LOO DO 04/21/20 Cyclobenzaprine Hcl (CYCLOBENZAPRINE HCL) 10 Mg Tablet 1 TAB PO TID, #21 TAB Prov: LIA LOO DO 04/21/20 Justicifation of Admission Dx: Justifications for Admission: Justification of Admission Dx: N/A LIA LOO DO Apr 21, 2020 06:28
[2020-04-21] MEDS ORDERED: diazePAM 5 MG TABLET PO ONE (06:30)
[2020-04-21] MEDS ORDERED: LIDOCAINE (700MG/PATCH) PATCH. TD ONE (06:30)
== END 2020-04-21 06:37 | disposition home or self-care (01) ==
LOC: ER 05:25
DX: M54.5 Low back pain (principal); M54.2 Cervicalgia; M19.90 Unspecified osteoarthritis, unspecified site; L40.9 Psoriasis, unspecified; I10 Essential (primary) hypertension; Z91.040 Latex allergy status; Z88.1 Allergy status to other antibiotic agents
CPT/HCPCS: 81025; 99283

== ENCOUNTER 2020-08-25 05:42 | Emergency (ER) | payer OTHER ==
[~2020-08-25] VITALS: Ht 165.1 cm; Wt 89.7 kg
[~2020-08-25 05:42] MED LIST changes: -CLIN300C8 PO; +CLIN300C9 PO; +LIDO1ADH78 TP
--- NOTE | 2020-08-25 06:13 | PHYS DOC ---
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 Patient reports she was lifting a heavy package of chicken and p utting her back on a counter when her right foot got caught under the counter face, she fell backwards hitting her right back on a metal rack. States when she leaned forward and placed weight on her left knee she "heard a pop." Since then has been able to bear weight. No recent fluoroquinolonesor antibiotics. Is not on any anticoagulants. Denies any alcohol or drugs today. Reports she did not hit her head or her neck. H/o left knee meniscal surgery at . Review of Systems: Review of Systems: Constitutional: Denies fever or chills. [] Eyes: Denies change in visual acuity. [] HENT: Denies nasal congestion or sore throat. [] Respiratory: Denies cough or shortness of breath. [] Cardiovascular: Denies chest pain or edema. [] GI: Denies abdominal pain, nausea, vomiting, bloody stools or diarrhea. [] : Denies dysuria or hematuria Musculoskeletal: Denies joint swelling, denies midline back pain Integument: Denies rash or crepitus Neurologic: Denies headache, focal weakness or sensory changes, denies any sad dle anesthesia, no urinary/bowel retention or incontinence (has voided since the accident) Endocrine: Denies polyuria or polydipsia. [] Lymphatic: Denies swollen glands. [] Psychiatric: Denies depression or anxiety. [] Heart Score: Risk Factors: Risk Factors: DM, Current or recent (<one month) smoker, HTN, HLP, family history of CAD, obesity. Risk Scores: Score 0 - 3: 2.5% MACE over next 6 weeks - Discharge Home Score 4 - 6: 20.3% MACE over next 6 weeks - Admit for Clinical Observation Score 7 - 10: 72.7% MACE over next 6 weeks - Early Invasive Strategies Allergies: Allergies: Allergies Coded Allergies Type Severity Reaction Last Updated Verified Penicillins Allergy Severe throat closes, hives 10/05/17 No tranexamic acid Allergy Severe Anaphylaxis 08/25/20 Yes latex Allergy Intermediate Rash 11/16/17 Yes vancomycin Allergy Intermediate rash/itching 10/05/17 Yes Physical Exam: PE: Constitutional: Well developed, well nourished, no acute distress, non-toxic appearance. HENT: Normocephalic, atraumatic, Eyes: EOMI, conjunctiva normal, no discharge. Neck: Normal range of motion, supple, Cardiovascular: S1/2 present, regular rhythm Lungs & Thorax: Speaking in full sentences, bilateral equal chest rise, no tachypnea or increased work of breathing Abdomen: soft, no tenderness, Skin: Warm, dry, no erythema, no rash. [] Back: No midline spinal tenderness, +right lower posterior ribs 8-10 ttp w/no crepitus, tolerates palpation, reports anterior and lateral left knee pain (bends & ambulates w/o discomfort), ligamentous testing negative (varus and valgus test, lachmans/reverse lachmans test), no ankle or hip pain Extremities: No tenderness, no cyanosis, no edema Neurologic: Alert and oriented X 3, normal motor function, normal sensory function, no focal deficits noted. [] Psychologic: Affect normal, judgement normal, mood normal. [] Nexus C-spine criteria are negative: There is no post midline tenderness, the patient is not intoxicated, there is a normal level of alertness, there are no focal neurologic deficits and there are no distracting injuries. Current Patient Data: Vital Signs: Vital Signs Date Time Temp Pulse Resp B/P (MAP) Pulse Ox O2 Delivery O2 Flow Rate FiO2 08/25/20 05:50 97.6 99 18 156/60 (92) 98 Room Air 97.6 EKG: EKG: [] Radiology/Procedures: Radiology/Procedures: IMAGING REPORT Signed PATIENT: LICHA LUIS DACCOUNT: [id number] : 1975 LOCATION: ER AGE: 45 SEX: F EXAM STATUS: REG ER ORD. PHYSICIAN: LIA LOO DO REASON: right thoracic lower rib pain/back pain/UNABLE TO REMOVE OBJECTS PER PATIEN PROCEDURE: CT CHEST ABDOMEN PELVIS WO CT CHEST_ABDOMEN_ AND PELVIS WITHOUT CONTRAST INDICATION: Reason: right thoracic lower rib pain/back pain/UNABLE TO REMOVE OBJECTS PER PATIEN / Spl. Instructions: / History: COMPARISON: CT abdomen pelvis 10/04/2017 TECHNIQUE: Multiple contiguous axial images were obtained throughout the chest, abdomen, and pelvis without the use of IV contrast. Axial images were reformatted into coronal and sagittal planes. One or more of the following dose reduction techniques were utilized: Automated exposure control (AEC), Adjustment of mA and/or kV according to patient size, Use of iterative reconstruction technique such as ASiR, CT scan done according to ALARA and image gently/image wisely. FINDINGS: Chest Findings: The thyroid is symmetric. There is no axillary, mediastinal, or hilar adenopathy, although evaluation of the osvaldo is limited without IV contrast. The thoracic aorta diameter is normal. The cardiac size is normal. There is no pericardial effusion. The central airways are patent. Lungs are clear. No pleural abnormality. Abdomen findings: Evaluation of solid abdominal viscera is limited without the use of IV contrast. However, the liver, gallbladder, spleen, pancreas, and adrenal glands are unremarkable. Punctate 2 mm nonobstructive right renal calculus. There is no significant mesenteric or retroperitoneal adenopathy identified, though evaluation is limited without intravenous contrast. There is no evidence of free intraperitoneal fluid or pneumoperitoneum. Visualized portions of the bowel are grossly unremarkable. Pelvis findings: Urinary bladder is decompressed. There is no significant pelvic ascites. No significant iliac or inguinal adenopathy is identified. No acute osseous abnormality. IMPRESSION: 1. No acute rib fracture. No acute thoracic or abdominal process. 2. Nonobstructive right renal 2 mm calculus. Electronically signed by: Kristin Siddiqi MD (08/25/2020 7:47 AM) [id number] DICTATED and SIGNED BY: KRISTIN SIDDIQI MD DATE: 08/25/20 [id number] IMAGING REPORT Signed PATIENT: LICHA LUIS DACCOUNT: [id number] : 1975 LOCATION: ER AGE: 45 SEX: F EXAM STATUS: REG ER ORD. PHYSICIAN: LIA LOO DO REASON: left knee pain, fall at work this am PROCEDURE: KNEE LEFT 3V XR KNEE _3 VIEWS_LT DATE: 08/25/2020 6:42 AM INDICATION: Reason: left knee pain, fall at work this am / Spl. Instructions: / History: COMPARISON: 03/08/2015 FINDINGS: Bones: There is no evidence of acute fracture or dislocation. Joints: Moderate medial compartment degenerative changes, progressed from 2015. Mild lateral and patellofemoral compartment degenerative changes. There is no joint effusion. Miscellaneous: None. IMPRESSION: No evidence of acute fracture. Electronically signed by: Kristin Siddiqi MD (08/25/2020 6:59 AM) [id number] DICTATED and SIGNED BY: KRISTIN SIDDIQI MD DATE: 08/25/20 [id number] Course & Med Decision Making: Course & Med Decision Making Pertinent Labs and Imaging studies reviewed. (See chart for details) Concern for blunt right thoracic back pain overlying her lower ribs & kidney in a well appearing/non distress, ambulatory female. Incidental finding of 2 mm no nobstructive right nephrolithiasis. Also complains of left knee anterior lateral pain. No acute process on x-ray imaging. Patient follows with orthopedic surgeon at and will be referred there for other imaging. Will discharge home with rice instructions, otc analgesia and muscle relaxers. Strict ED return precautions were given for saddle anesthesia, hematuria, urine or bowel retention or incontinence, neurologic deficits or severe pain. Encouraged urgent outpatient follow-up with PMD and orthopedic surgeon. Life-threatening processes were considered but are low suspicion at this time, given history, physical exam and ED workup. Pt was educated on all prescription medications and adverse effects. All patient's questions were answered and pt was stable at time of discharge. Life/limb-threatening differential includes but is not limited to, intracranial hemorrhage, diffuse axonal injury, spinal cord syndrome, unstable cervical fracture or SCIWORA, fractures or joint dislocations, neurovascular injuries, organ injury or laceration, pneumothorax, pneumoperitoneum, pericardial tamponade, unstable pelvic fracture, compartment syndrome, flail chest or respiratory distress, burn injury or asphyxiation I spoken with the patient and her caregivers. I explained the patient's condition, diagnoses and treatment plan based on the information available to me at this time. I have answered the patient and her caregiver's questions and addressed any concerns. The patient and her caregivers have a good understanding of patient's diagnosis, condition and treatment plan as can be expected at this point. Vital signs have been stable. Patient's condition is stable and appropriate for discharge from the emergency department. Patient will pursue further outpatient evaluation with primary care physician or other designated or consulting physician as outlined in the discharge instructions. The patient and/or caregivers are agreeable to this plan of care and follow-up instructions have been explained in detail. The patient and/or caregivers have received these instructions in written form and have expressed an understanding of the discharge instructions. The patient and/or caregivers are aware that any significant change of condition or worsening of symptoms should prompt immediate return to this or the closest emergency department or call to 1. Misty Disclaimer: Misty Disclaimer: This electronic medical record was generated, in whole or in part, using a voice recognition dictation system. Departure Departure Impression: Primary Impression: Blunt injury of back Additional Impressions: Rib pain on right side Right nephrolithiasis Left anterior knee pain Disposition: 01 DC HOME SELF CARE/HOMELESS Condition: STABLE Referrals: UNKNOWN PCP NAME (PCP) FOLLOW UP WITH FAMILY MEDICINE: Family Medicine Address: [address] [place] [address] Patient Instructions: Blunt Trauma, Kidney Stones, Knee Pain Additional Instructions: FOLLOW UP WITH ORTHOPEDICS: Orthopaedic Sports Medicine Orthopaedic Surgery [facility] Address: [address] [place] [address] EMERGENCY DEPARTMENT GENERAL DISCHARGE INSTRUCTIONS Thank you for coming to [facility] Emergency Department (ED) to day and trusting us with you care. We trust that you had a positive experience in our Emergency Department. If you wish to speak to the department management, you may call the Director at [phone]. YOUR FOLLOW UP INSTRUCTIONS ARE FOLLOWS: 1. Do you have a private Doctor? If you do not have a private doctor, please ask for a resource list of physicians or clinics that may be able to assist you with follow up care. 2. The Emergency Physicain has interpreted your x-rays. The X-Ray specialist will also review them. If there is a change in the findings, you will be notified in 48 hours when at all possible. 3. A lab test or culture has been done, your results will be reviewed and you will be notified if you need a change in treatment. ADDITIONAL INSTRUCTIONS AND INFORMATION: 1. Your care today has been supervised by a physician who is specially trained in emergency care. Many problems require more than one evaluation for a complete diagnosis and treatment. We recommend that you schedule your follow up appointment as recommended to ensure complete treatment of you illness or injury. If you are unable to obtain follow up care and continue to have a problem, or if your condition worsens, we recommend that you return to the ED. 2. We are not able to safely determine your condition over the phone nor are we able to give sound medical advice over the phone. For these safety reasons, if you call for medical advice we will ask you to come to the ED for further evaluation. 3. If you have any questions regarding these discharge instructions please call the ED at [phone]. SAFETY INFORMATION: In the interest of safety, wellness, and injury prevention; we encourage you to wear your sealbelt, if you smoke; quite smoking, and we encourage family to use a protective helmet for bicycling and other sporting events that present an increased risk for head injury. IF YOUR SYMPTOMS WORSEN OR NEW SYMPTOMS DEVELOP, OR YOU HAVE CONCERNS ABOUT YOUR CONDITION; OR IF YOUR CONDITION WORSENS WHILE YOU ARE WAITING FOR YOUR FOLLOW UP APPOINTMENT; EITHER CONTACT YOUR PRIMARY CARE DOCTOR, THE PHYSICIAN WHOSE NAME AND NUMBER YOU WERE GIVEN, OR RETURN TO THE ED IMMEDIATELY. Scripts Cyclobenzaprine Hcl (CYCLOBENZAPRINE HCL) 10 Mg Tablet 1 TAB PO TID PRN for PAIN for 5 Days, #15 TAB Prov: LIA LOO DO 08/25/20 LIA LOO DO Aug 25, 2020 06:13
[2020-08-25] MEDS ORDERED: LIDOCAINE (700MG/PATCH) PATCH. ONE (06:28)
[2020-08-25] MEDS ORDERED: CYCLOBENZAPRINE 10 MG TABLET. ONE (06:28)
[2020-08-25] MEDS ORDERED: CYCLOBENZAPRINE 10 MG TABLET. PO ONE (06:30)
[2020-08-25] MEDS ORDERED: LIDOCAINE (700MG/PATCH) PATCH. TD ONE (06:30)
--- NOTE | 2020-08-25 07:01 | RAD ---
XR KNEE _3 VIEWS_LT DATE: 08/25/2020 6:42 AM INDICATION: Reason: left knee pain, fall at work this am / Spl. Instructions: / History: COMPARISON: 03/08/2015 FINDINGS: Bones: There is no evidence of acute fracture or dislocation. Joints: Moderate medial compartment degenerative changes, progressed from 2015. Mild lateral and pat ellofemoral compartment degenerative changes. There is no joint effusion. Miscellaneous: None. IMPRESSION: No evidence of acute fracture. Electronically signed by: Lenny Joyner MD (08/25/2020 6:59 AM) [id number]
--- NOTE | 2020-08-25 07:50 | RAD ---
CT CHEST_ABDOMEN_ AND PELVIS WITHOUT CONTRAST INDICATION: Reason: right thoracic lower rib pain/back pain/UNABLE TO REMOVE OBJECTS PER PATIEN / Sp l. Instructions: / History: COMPARISON: CT abdomen pelvis 10/04/2017 TECHNIQUE: Multiple contiguous axial images were obtained throughout the chest, abdomen, and pelvis without the use of IV contrast. Axial images were reformatted into coronal and sagittal planes. One or more of th e following dose reduction techniques were utilized: Automated exposure control (AEC), Adjustment of mA and/or kV according to patient size, Use of iterative reconstruction technique such as ASiR, CT sc an done according to ALARA and image gently/image wisely. FINDINGS: Chest Findings: The thyroid is symmetric. There is no axillary, mediastinal, or hilar adenopathy, although evaluatio n of the osvaldo is limited without IV contrast. The thoracic aorta diameter is normal. The cardiac size is normal. There is no pericardial effusion. The central airways are patent. Lungs are clear. No pleural abnormality. Abdomen findings: Evaluation of solid abdominal viscera is limited without the use of IV contrast. However, the liver, gallbladder, spleen, pancreas, and adrenal glands are unremarkable. Punctate 2 mm nonobstructive ri ght renal calculus. There is no significant mesenteric or retroperitoneal adenopathy identified, tho ugh evaluation is limited without intravenous contrast. There is no evidence of free intraperitoneal fluid or pneumoperitoneum. Visualized portions of the bowel are grossly unremarkable. Pelvis findings: Urinary bladder is decompressed. There is no significant pelvic ascites. No significant iliac or in guinal adenopathy is identified. No acute osseous abnormality. IMPRESSION: 1. No acute rib fracture. No acute thoracic or abdominal process. 2. Nonobstructive right renal 2 mm calculus. Electronically signed by: Lenny Joyner MD (08/25/2020 7:47 AM) [id number]
[2020-08-25] MEDS ORDERED: CYCL10TA2 PO (07:57)
[2020-08-25 08:34] VITALS: BP 147/67
== END 2020-08-25 08:35 | disposition home or self-care (01) ==
LOC: ER 05:42
DX: S39.82XA Other specified injuries of lower back, initial encounter (principal); N20.0 Calculus of kidney; M25.562 Pain in left knee; R07.81 Pleurodynia; M19.90 Unspecified osteoarthritis, unspecified site; I10 Essential (primary) hypertension; Z90.710 Acquired absence of both cervix and uterus; Z98.890 Other specified postprocedural states; Z88.1 Allergy status to other antibiotic agents; Z91.041 Radiographic dye allergy status; Z88.8 Allergy status to other drugs, medicaments and biological substances; W18.39XA Other fall on same level, initial encounter; Y93.89 Activity, other specified; Y92.89 Other specified places as the place of occurrence of the external cause; Y99.8 Other external cause status
CPT/HCPCS: 71250; 73562; 74176; 81025; 99285

== ENCOUNTER 2021-04-05 06:18 | Emergency (ER) | payer OTHER ==
[~2021-04-05] VITALS: Ht 165.1 cm; Wt 85.0 kg
[2021-04-05 06:30] VITALS: BP 147/71
--- NOTE | 2021-04-05 07:06 | RAD ---
XR CHEST 1V History: Cough, short of air Comparison: 09/29/2015 Technique: Portable AP radiograph of the chest. Findings: The lungs are adequately inflated. There are hazy bibasilar opacities. No pleural effusion or pneumot horax. The cardiomediastinal silhouette and pulmonary vasculature are within normal limits. Osseous s tructures and soft tissues are unremarkable. Impression: 1. Hazy bibasilar airspace disease. Electronically signed by: Emigdio Ely MD (04/05/2021 7:04 AM) [id number]
--- NOTE | 2021-04-05 07:07 | PHYS DOC ---
Past Medical History Past Medical History: Arthritis, Hypertension Additional Past Medical Histor: DEGENERATIVE NERVE DISORDER Past Surgical History: Hysterectomy, Other Additional Past Surgical Histo: L knee sx Smoking Status: Never Smoker Alcohol Use: None Drug Use: None General Adult EDM: Chief Complaint: SHORTNESS OF BREATH HPI: HPI: Patient is a 46 year old female who present to ER for evaluation of cough, body aches, loss of taste for 3 days. Patient also had some diarrhea and frequent urination. Patient says she was vaccinated for COVID-19 on March 24, 2021 with [employer]eb vaccine. Patient denies any abdominal pain, no nausea vomiting.. Patient denies any fever. Review of Systems: Review of Systems: Constitutional: Denies fever or chills. [] Eyes: Denies change in visual acuity. [] HENT: Denies nasal congestion or sore throat. [] Respiratory: Positive for cough, no trouble breathing Cardiovascular: Denies chest pain or edema. [] GI: Denies abdominal pain, nausea, vomiting, bloody stools, positive for diarrhea : Denies dysuria, positive for urinary frequency Musculoskeletal: Denies back pain or joint pain. [] Integument: Denies rash. [] Neurologic: Denies headache, focal weakness or sensory changes. [] Endocrine: Denies polyuria or polydipsia. [] Lymphatic: Denies swollen glands. [] Psychiatric: Denies depression or anxiety. [] Heart Score: C/O Chest Pain: N/A Risk Factors: Risk Factors: DM, Current or recent (<one month) smoker, HTN, HLP, family history of CAD, obesity. Risk Scores: Score 0 - 3: 2.5% MACE over next 6 weeks - Discharge Home Score 4 - 6: 20.3% MACE over next 6 weeks - Admit for Clinical Observation Score 7 - 10: 72.7% MACE over next 6 weeks - Early Invasive Strategies Allergies: Allergies: Allergies Coded Allergies Type Severity Reaction Last Updated Verified Penicillins Allergy Severe throat closes, hives 10/05/17 No tranexamic acid Allergy Severe Anaphylaxis 08/25/20 Yes latex Allergy Intermediate Rash 11/16/17 Yes vancomycin Allergy Intermediate rash/itching 10/05/17 Yes Physical Exam: PE: Constitutional: Well developed, well nourished, no acute distress, non-toxic appearance. [] HENT: Normocephalic, atraumatic, bilateral external ears normal, oropharynx moist, no oral exudates, nose normal. [] Eyes: PERRLA, EOMI, conjunctiva normal, no discharge. [] Neck: Normal range of motion, no tenderness, supple, no stridor. [] Cardiovascular:Heart rate regular rhythm, no murmur [] Lungs & Thorax: Bilateral breath sounds clear to auscultation [] Abdomen: Bowel sounds normal, soft, no tenderness, no masses, no pulsatile masses. [] Skin: Warm, dry, no erythema, no rash. [] Back: No tenderness, no CVA tenderness. [] Extremities: No tenderness, no cyanosis, no clubbing, ROM intact, no edema. [] Neurologic: Alert and oriented X 3, normal motor function, normal sensory function, no focal deficits noted. [] Psychologic: Affect normal, judgement normal, mood normal. [] Current Patient Data: Labs: Laboratory Tests Test 04/05/21 06:27 POC Urine HCG, Qualitative Hcg negative (Negative) EKG: EKG: [] Radiology/Procedures: Radiology/Procedures: Laboratory Tests Test 04/05/21 06:25 04/05/21 06:27 04/05/21 07:59 Urine Collection Type Unknown Urine Color Yellow Urine Clarity Clear Urine pH 6.0 Urine Specific Ailey 1.025 Urine Protein Negative mg/dL Urine Glucose (UA) Negative mg/dL Urine Ketones (Stick) 15 mg/dL Urine Blood Negative Urine Nitrite Negative Urine Bilirubin Negative Urine Urobilinogen Dipstick 1.0 mg/dL Urine Leukocyte Esterase Small Urine RBC 0 /HPF Urine WBC 5-10 /HPF Urine Squamous Epithelial Cells Mod /LPF Urine Bacteria 0 /HPF Urine Mucus Marked /LPF Bedside Urine HCG, Qualitative Hcg negative SARS-CoV-2 Antigen (Rapid) Positive [] [facility] [address] [place] [address] IMAGING REPORT Signed PATIENT: LICHA LUIS DACCOUNT: [id number] : 1975 LOCATION: ER AGE: 46 SEX: F EXAM STATUS: PRE ER ORD. PHYSICIAN: GAGAN DAUGHERTY DO REASON: cough, soa PROCEDURE: CHEST AP ONLY XR CHEST 1V History: Cough, short of air Comparison: 09/29/2015 Technique: Portable AP radiograph of the chest. Findings: The lungs are adequately inflated. There are hazy bibasilar opacities. No pleural effusion or pneumothorax. The cardiomediastinal silhouette and pulmonary vasculature are within normal limits. Osseous structures and soft tissues are unremarkable. Impression: 1. Hazy bibasilar airspace disease. Electronically signed by: Emigdio Ely MD (04/05/2021 7:04 AM) [id number] DICTATED and SIGNED BY: EMIGDIO ELY MD DATE: 04/05/21 [id number] Course & Med Decision Making: Course & Med Decision Making Pertinent Labs and Imaging studies reviewed. (See chart for details) Patient is a 46-year-old female who present to ER due to cough, body aches, loss of taste and diarrhea for 3 days. Patient was tested positive for COVID-19. Chest x-ray shows some hazy infiltration in the lower base, her oxygen saturat ion is 99% on room air, patient was in no acute distress. Patient will be discharged home with some medication to take Dragon Disclaimer: Dragon Disclaimer: This electronic medical record was generated, in whole or in part, using a voice recognition dictation system. Departure Departure Impression: Primary Impression: Pneumonia due to COVID-19 virus Additional Impression: UTI (urinary tract infection) Disposition: 01 HOME / SELF CARE / HOMELESS Condition: STABLE Referrals: UNKNOWN PCP NAME (PCP) Follow up with your doctor as needed Patient Instructions: Pneumonia, Adult, Urinary Tract Infection, [id number] Additional Instructions: You have been tested for or diagnosed with COVID-19. It is an infection caused by a new type of coronavirus. COVID-19 will cause cold-like or mild flu symptoms in most. It can cause more severe symptoms like problems breathing in some. There is no treatment for COVID-19. The body will clear the infection over time. Self-care will help to ease discomfort. Steps to Take: Self-Care Rest as needed. Healthy habits may help you feel better. Steps include: Choose healthy foods including fruits and vegetables. Drink water throughout the day. Get plenty of sleep each night. If you smoke, try to quit. It may ease breathing. Avoid alcohol. Keep Others Healthy The virus can spread to others. Droplets are released every time you sneeze or cough. The droplets can get into the mouth, nose, or eyes of people near you and lead to infection. To lower the chances of spreading COVID-19 to others: Stay at home until your doctor has said it is safe to leave. If you tested positive this will mean staying isolated until both of the following are true: At least 7 days have passed since the start of illness. You are free of fever for at least 72 hours without the use of medicine. During this time: - Avoid public areas, events, or transportation. Do not return to work or school until your doctor has said it is safe to do so. - Call ahead if you need to go to a medical center. Let them know you may have COVID-19. It will help them guide you where to go. They may also ask you to wear a facemask when you come to the office. - If you call for emergency medical services, let them know you may have COVID- 19. While at home: - Try to avoid close contact with others. Stay about 6 feet away. - If possible, spend most of your time in a separate room from others. - Use a face mask if you will be in close contact with others such as sharing a room or vehicle. - Have someone wipe down common surfaces in the home. Use household area safety manager every day on areas like doorknobs, counters, or sinks. - Cough or sneeze into a tissue. Throw the tissue away right after use. If a tissue is not available, cough or sneeze into your elbow. - Wash your hands often. Wash them after sneezing or coughing. Use soap and water and wash for at least 20 seconds. Alcohol based hand drain cleaner plumber can be used if soap and water is not available. - Do not prepare food for others. Avoid sharing personal items like forks, spoons, or toothbrushes. - Avoid close contact with pets while you are sick. There is no evidence of the virus passing to pets. This is a safety step until more is known about this virus. Isolation can be frustrating. Social interaction can help. Keep in touch with friends and family through phone and tech options. You can still interact with others in your home, just keep a safe distance of about 6 feet. Follow-up: Your doctors office will check in with you to see if there are any changes in your health. You may be asked to keep track of symptoms to share with them. They will also let you know when you are clear to be in public again. Problems to Look Out For: Contact your doctor if your recovery is not going as you expect. Get emergency care if you have problems such as: - Trouble breathing - Nonstop chest pain or pressure - Changes in awareness, confusion, or problems waking - Lips or face have bluish color - Worsening of symptoms If you think you have an emergency, call for emergency medical services right away. As taken from [email or web address] Ciprofloxacin Hcl (CIPRO) 500 Mg Tablet 1 TAB PO BID for 5 Days, #10 TAB 0 Refills Prov: GAGAN DAUGHERTY DO 04/05/21 Azithromycin (ZITHROMAX) 250 Mg Tablet 1 PKG PO UD, #6 TAB Prov: GAGAN DAUGHERTY DO 04/05/21 Prednisone (PREDNISONE) 20 Mg Tablet 1 TAB PO DAILY for 7 Days, #7 TAB Prov: GAGAN DAUGHERTY DO 04/05/21 GAGAN DAUGHERTY DO Apr 05, 2021 07:07
[2021-04-05 07:13] LABS: BILIRUBIN,URINE NEGATIVE (NEG); CLARITY,URINE CLEAR; COLOR,URINE YELLOW; NITRITE,URINE NEGATIVE (NEG); PROTEIN,URINE NEGATIVE (NEG-TRACE)
[2021-04-05 07:46] LABS: BACTERIA,URINE 0 /HPF (0-FEW); RBC,URINE 0 /HPF (0-2)
[2021-04-05] MEDS ORDERED: CIPR500T94 PO (10:19)
[2021-04-05] MEDS ORDERED: AZIT250T PO (10:19)
[2021-04-05] MEDS ORDERED: PRED20TA PO (10:19)
== END 2021-04-05 10:29 | disposition home or self-care (01) ==
LOC: ER 06:18
DX: U07.1 COVID-19 (principal); J12.82 Pneumonia due to coronavirus disease 2019; N39.0 Urinary tract infection, site not specified; I10 Essential (primary) hypertension; Z90.710 Acquired absence of both cervix and uterus
CPT/HCPCS: 71045; 81001; 81025; 87086; 87426; 99284